=== PATIENT | male | born 1990 | race Two or more races ===

== ENCOUNTER 2017-06-04 03:19 | Emergency (ER) | payer SELFPAY ==
[2017-06-04 03:32] VITALS: BP 179/111
[2017-06-04] MEDS ORDERED: Albuterol/Ipratropium 3.0-0.5 MG/3 ML Neb Soln ONE (03:32)
--- NOTE | 2017-06-04 05:11 | EDM.PDOC ---
<Jasbir Blanco - Last Filed: 06/04/17 07:31> ED HPI GENERAL MEDICAL PROBLEM - General Chief Complaint: Respiratory Problem Stated Complaint: SOB Time Seen by Provider: 06/04/17 03:26 Source of Information: Reports: Patient, RN Notes Reviewed History Limitations: Reports: No Limitations - History of Present Illness INITIAL COMMENTS - FREE TEXT/NARRATIVE: The patient states that he developed a cough productive of clear, sometimes yellowish sputum along with a subjective fever this past Wednesday or Wednesday, 05/31 or 06/01/2017. He started taking an [id number] cough/cold remedy on 06/01/2017. On 06/02/2017, he developed shortness of breath and wheezing, consistent with his known asthma. He has been using his albuterol MDI 1 puff every 30 minutes, but it has not been helping. He started taking his 's amoxicillin (500 mg?) last night at 18:00, then a second dose at 02:00 this morning. The patient has never been evaluated by a [employer], and has never undergone pulmonary function tests. The albuterol MDI that he uses was given to him by his mother. The patient does not have a PCP. Chest Pain Score (Numeric/FACES): 3 - Related Data Allergies Allergy/AdvReac Type Severity Reaction Status Date / Time No Known Allergies Allergy Verified 06/04/17 03:32 Home Meds: Home Meds Albuterol [Proventil HFA] 2 inhalation INH Q2H PRN #1 inhaler 06/04/17 [Rx] Prednisone [IJD: predniSONE] 80 mg PO WITHBREAKFAST #16 tab 06/04/17 [Rx] Past Medical History Respiratory History: Reports: Asthma (presumed, never tested for) Endocrine/Metabolic History: Reports: Obesity/BMI 30+ - Past Surgical History Male Surgical History: Reports: Circumcision Social & Family History - Tobacco Use Smoking Status *Q: Former Smoker Years of Tobacco use: 3 Packs/Tins Daily: 0.1 Month Tobacco Last Used: Quit 05/2012 - Alcohol Use Alcohol Use History: Yes Alcohol Use Frequency: Socially - Recreational Drug Use Recreational Drug Use: No - Living Situation & Occupation Living situation: Reports: , with Spouse, with Family (2 kids) Occupation: Employed ([employer]) ED ROS GENERAL - Review of Systems Review Of Systems: See Below Constitutional: Reports: No Symptoms HEENT: Reports: No Symptoms Respiratory: Reports: No Symptoms Cardiovascular: Reports: No Symptoms Endocrine: Reports: No Symptoms GI/Abdominal: Reports: No Symptoms : Reports: No Symptoms Musculoskeletal: Reports: No Symptoms Skin: Reports: No Symptoms Neurological: Reports: No Symptoms Psychiatric: Reports: No Symptoms Hematologic/Lymphatic: Reports: No Symptoms Immunologic: Reports: No Symptoms ED EXAM, GENERAL - Physical Exam Exam: See Below Exam Limited By: No Limitations General Appearance: Alert, WD/WN, Mild Distress (Appears dyspneic) Eye Exam: Bilateral Eye: Normal Inspection Ears: Normal External Exam, Hearing Grossly Normal Nose: Normal Inspection, No Blood Throat/Mouth: Normal Inspection, Normal Lips, Normal Voice, No Airway Compromise Head: Atraumatic, Normocephalic Neck: Normal Inspection, Full Range of Motion Respiratory/Chest: No Accessory Muscle Use, Decreased Breath Sounds, Wheezing ( throughout lung peralta), Prolonged Expiration. No: Crackles, Rhonchi Cardiovascular: Normal Peripheral Pulses, Regular Rate, Rhythm, No Gallop, No JVD, No Murmur, No Rub, Tachycardia Peripheral Pulses: 4+: Radial (L), Radial (R) GI/Abdominal: Normal Bowel Sounds, Soft, Non-Tender, No Organomegaly, No Distention, No Abnormal Bruit, No Mass, Other (Obese) (Male) Exam: Deferred Rectal (Males) Exam: Deferred Back Exam: Normal Inspection, Full Range of Motion, NT Extremities: Normal Inspection, Normal Range of Motion, No Pedal Edema, Normal Capillary Refill Neurological: Alert, Oriented, Normal Cognition, No Motor/Sensory Deficits Psychiatric: Normal Affect Skin Exam: Warm, Dry, Intact, Normal Color, No Rash Course - Vital Signs Last Recorded V/S: Last Vital Signs Temp 36.0 C 06/04/17 03:25 Pulse 89 06/04/17 11:00 Resp 18 06/04/17 11:00 BP 179/111 H 06/04/17 03:25 Pulse Ox 94 L 06/04/17 11:00 - Orders/Labs/Meds Orders: Active Orders 24 hr Category Date Time Status RT Aerosol Therapy [RC] ASDIRECTED Care 06/04/17 05:13 Active RT Aerosol Therapy [RC] ASDIRECTED Care 06/04/17 06:10 Active RT Aerosol Therapy [RC] ASDIRECTED Care 06/04/17 06:51 Active RT Post Treatment Assessment [RC] Click to Edit Care 06/04/17 07:34 Active RT Pre-Treatment Assessment [RC] Click to Edit Care 06/04/17 07:34 Active Albuterol [Proventil HFA] Med 06/04/17 07:33 Active See Dose Instructions INH Q2H PRN Medication Orders Albuterol (Proventil Hfa) 0 gm INH Q2H PRN PRN Reason: Wheezing Last Admin: 06/04/17 07:48 Dose: 2 puff Labs: Laboratory Tests 06/04/17 06/04/17 Range/Units 03:51 03:51 WBC 14.36 H (4.23-9.07) K/mm3 RBC 5.72 (4.63-6.08) M/mm3 Hgb 16.2 (13.7-17.5) gm/L Hct 45.9 (40.1-51.0) % MCV 80.2 (79.0-92.2) fl MCH 28.3 (25.7-32.2) pg MCHC 35.3 (32.2-35.5) g/dl RDW Std Deviation 38.8 (35.1-43.9) fL Plt Count 253 (163-337) K/mm3 MPV 10.1 (9.4-12.3) fl Neutrophils % (Manual) 79 H (40-60) % Band Neutrophils % 1 (0-10) % Lymphocytes % (Manual) 13 L (20-40) % Atypical Lymphs % 0 % Monocytes % (Manual) 3 (2-10) % Eosinophils % (Manual) 3 (0.8-7.0) % Basophils % (Manual) 1 (0.2-1.2) Platelet Estimate Adequate RBC Morph Comment Normal Sodium 138 (136-145) mEq/L Potassium 3.3 L (3.5-5.1) mEq/L Chloride 102 (98-107) mEq/L Carbon Dioxide 22 (21-32) mEq/L Anion Gap 17.3 H (5-15) BUN 9 (7-18) mg/dL Creatinine 1.1 (0.7-1.3) mg/dL Est Cr Clr Drug Dosing 108.39 mL/min Estimated GFR (MDRD) > 60 (>60) mL/min BUN/Creatinine Ratio 8.2 L (14-18) Glucose 165 H (74-106) mg/dL Calcium 9.0 (8.5-10.1) mg/dL Total Bilirubin 2.0 H (0.2-1.0) mg/dL AST 25 (15-37) U/L ALT 48 (16-63) U/L Alkaline Phosphatase 72 (46-116) U/L Total Protein 8.4 H (6.4-8.2) g/dl Albumin 4.3 (3.4-5.0) g/dl Globulin 4.1 gm/dL Albumin/Globulin Ratio 1.1 (1-2) Meds: Medications Generic Name Dose Route Start Last Admin Trade Name Freq PRN Reason Stop Dose Admin Albuterol 0 gm 06/04/17 07:33 06/04/17 07:48 Proventil Hfa INH 2 puff Q2H PRN Administration Wheezing Discontinued Medications Generic Name Dose Route Start Last Admin Trade Name Freq PRN Reason Stop Dose Admin Albuterol 2.5 mg 06/04/17 05:13 06/04/17 05:27 Proventil Neb Soln NEB 06/04/17 05:14 2.5 mg ONETIME ONE Administration Albuterol Confirm 06/04/17 05:30 06/04/17 06:14 Proventil Neb Soln Administered 06/04/17 05:31 2.5 mg Dose Administration 2.5 mg .ROUTE .STK-MED ONE Albuterol 2.5 mg 06/04/17 06:10 06/04/17 06:14 Proventil Neb Soln NEB 06/04/17 06:11 Not Given ONETIME ONE Albuterol/Ipratropium Confirm 06/04/17 03:32 06/04/17 03:34 Duoneb 3.0-0.5 Mg/3 Ml Administered 06/04/17 03:33 3 ml Dose Administration 3 ml .ROUTE .STK-MED ONE Albuterol/Ipratropium 3 ml 06/04/17 06:51 06/04/17 06:57 Duoneb 3.0-0.5 Mg/3 Ml NEB 06/04/17 06:52 3 ml ONETIME ONE Administration Prednisone 80 mg 06/04/17 05:12 06/04/17 05:21 Prednisone PO 06/04/17 05:13 80 mg ONETIME STA Administration - Re-Assessments/Exams Free Text/Narrative Re-Assessment/Exam: 06/04/17 05:11 Two-view chest radiograph appears to be grossly normal. Cardiac silhouette is within normal limits. No pulmonary vascular congestion. No pleural effusions. No focal infiltrate. No pneumothorax. Formal read per the Radiologist pending. 06/04/17 06:51 The patient has thus far received a DuoNeb, 2 albuterol nebs, and 80 mg oral prednisone. He continues to have expiratory wheezes across all lung peralta, with somewhat prolonged exhalations. I have ordered a second DuoNeb. The patient may require placement into observation for continued treatment. 06/04/17 07:[address] Selma Blackwell, and care of the patient turned over to her at this time for change of shift. Departure - Departure Disposition: Home, Self-Care 01 Clinical Impression: Asthma exacerbation - Discharge Information Prescriptions: Albuterol [Proventil HFA] 2 inhalation INH Q2H PRN #1 inhaler PRN Reason: Shortness Of Breath Prednisone [IJD: predniSONE] 80 mg PO WITHBREAKFAST #16 tab Instructions: Asthma, Adult, [id number] Referrals: PCP,None [Primary Care Provider] - Forms: ED Department Discharge Additional Instructions: 1. Use albuterol as prescribed for wheezing or shortness of breath 2. Take prednisone as prescribed. Next dose should be tomorrow morning 3. Follow up with a primary doctor as soon as possible. Call [phone] if you' d like to schedule here. 4. Return to the ED at any time if you have worsening shortness of breath or any other concerning symptoms. - My Orders Last 24 Hours: My Active Orders 06/04/17 07:33 Albuterol [Proventil HFA] See Dose Instructions INH Q2H PRN 06/04/17 07:34 RT Post Treatment Assessment [RC] Click to Edit RT Pre-Treatment Assessment [RC] Click to Edit - Assessment/Plan Last 24 Hours: My Active Orders 06/04/17 07:33 Albuterol [Proventil HFA] See Dose Instructions INH Q2H PRN 06/04/17 07:34 RT Post Treatment Assessment [RC] Click to Edit RT Pre-Treatment Assessment [RC] Click to Edit <Shai Archibald - Last Filed: 06/04/17 11:25> Course - Re-Assessments/Exams Free Text/Narrative Re-Assessment/Exam: 06/04/17 07:56 Patient signed out to me pending reevaluation and observation. At this time, patient is breathing comfortably on room air and speaking in full sentences. He has no respiratory distress. States that he feels a lot better and has much less tightness in his chest. He does still have diffuse expiratory wheezes. He received oral prednisone a couple of hours ago. We will continue albuterol and continued to observe him this morning as the prednisone is beginning to take effect to ensure that he continues to improve. Ordered albuterol MDI inhaler with spacer and requested RT to assist patient with some teaching to ensure proper technique. 06/04/17 11:25 Feeling much better. SpO2 94-97 on RA. Still mildly wheezing but improved. Wants to go home. Discussed strict return precautions and need for PCP f/u. Patient understood. Departure - Departure Time of Disposition: 10:57
[2017-06-04] MEDS ORDERED: predniSONE 20 MG Tab PO STA (05:12)
[2017-06-04] MEDS ORDERED: Albuterol 0.083% 2.5 MG/3 ML Neb Soln NEB ONE ×2 (05:13→06:10)
[2017-06-04] MEDS ORDERED: Albuterol 0.083% 2.5 MG/3 ML Neb Soln ONE (05:30)
[2017-06-04] MEDS ORDERED: Albuterol/Ipratropium 3.0-0.5 MG/3 ML Neb Soln NEB ONE (06:51)
--- NOTE | 2017-06-04 07:02 | CR ---
Chest: Two views of the chest were obtained. Comparison: No previous chest x-ray. Heart size and mediastinum are normal. Lungs are clear. Bony structures are unremarkable. Impression: 1. Nothing acute is seen on two-view chest x-ray. Diagnostic code #1
[2017-06-04] MEDS ORDERED: Albuterol 6.7 GM Inhaler INH PRN (07:33)
== END 2017-06-04 11:15 | disposition home or self-care (01) ==
LOC: JD.ED 03:19
DX: J45.901 Unspecified asthma with (acute) exacerbation (principal); Z87.891 Personal history of nicotine dependence
CPT/HCPCS: 36415; 71020; 80053; 85025; 87804; 94640; 94664; 99285; A9270; 99284

== ENCOUNTER 2018-03-29 23:06 | Observation (INO) | payer MEDICAID ==
[2018-03-29] MEDS ORDERED: Alum Hydrox/Mag Hydrox/Simeth 30 ML, Lidocaine 2% 15 ML PO ONE ×2 (23:40)
[2018-03-30] MEDS ORDERED: Famotidine 20 MG/2 ML SDV IVPUSH ONE (00:11)
[2018-03-30] MEDS: Sodium Chloride 0.9% 1,000 ML IV SCH ×5 (00:21→23:28)
[2018-03-30] MEDS ORDERED: Diatrizoate Meglumine/Diatrizoate Sodium 37% 120 ML Bottle PO ONE (01:29)
[2018-03-30] MEDS ORDERED: Iopamidol 612 MG/ML 150 ML Bottle IVPUSH ONE (01:29)
[2018-03-30] MEDS ORDERED: Albuterol 0.083% 2.5 MG/3 ML Neb Soln NEB ONE (02:00)
--- NOTE | 2018-03-30 02:49 | EDM.PDOC ---
ED HPI GENERAL MEDICAL PROBLEM - General Chief Complaint: Abdominal Pain Stated Complaint: ABDOMINAL PAIN Time Seen by Provider: 03/29/18 23:37 Source of Information: Reports: Patient History Limitations: Reports: No Limitations - History of Present Illness INITIAL COMMENTS - FREE TEXT/NARRATIVE: Patient is 28-year-old male presents emergency department complaining of bloody stool. Approximately 11:00 yesterday patient began having abdominal pain That he thought would pass. He took some Tums and other things [id number] felt a little better but went to the bathroom and had a bloody bowel movement and was concerned so he came to the emergency department. Patient continues to have abdominal discomfort. He describes it as a aching kind of feeling. He denies any black stools, no vomiting, no chest pain or shortness of breath no new rashes itches or joint pains at this time. Onset: Sudden Duration: Day(s): Location: Reports: Abdomen Quality: Reports: Ache Severity: Moderate Improves with: Reports: Medication (OTC antacids) Worsens with: Reports: None Context: Reports: Other (See history of present illness) Associated Symptoms: Reports: Nausea/Vomiting (Nausea no vomiting). Denies: Chest Pain, cough w sputum, Fever/Chills, Shortness of Breath Epigastric Pain Score (Numeric/FACES): 6 - Related Data Allergies Allergy/AdvReac Type Severity Reaction Status Date / Time No Known Allergies Allergy Verified 03/29/18 23:23 Home Meds: Home Meds Albuterol [Proventil HFA] 2 inhalation INH Q2H PRN #1 inhaler 06/04/17 [Rx] Fluticasone Propionate [Flovent HFA 110 MCG] 2 puff INH BID 03/30/18 [History] Past Medical History - Past Health History Medical/Surgical History: Denies Medical/Surgical History Respiratory History: Reports: Asthma Endocrine/Metabolic History: Reports: Obesity/BMI 30+ - Past Surgical History Male Surgical History: Reports: Circumcision Social & Family History - Tobacco Use Smoking Status *Q: Former Smoker Used Tobacco, but Quit: Yes Month/Year Tobacco Last Used: 2 - Caffeine Use Caffeine Use: Reports: None - Recreational Drug Use Recreational Drug Use: No - Living Situation & Occupation Living situation: Reports: , with Spouse, with Family (2 kids) Occupation: Employed ([employer]) ED ROS GENERAL - Review of Systems Review Of Systems: See Below Constitutional: Reports: No Symptoms HEENT: Reports: No Symptoms Respiratory: Reports: No Symptoms Cardiovascular: Reports: No Symptoms Endocrine: Reports: No Symptoms GI/Abdominal: Reports: Abdominal Pain, Bloody Stool, Hematochezia, Nausea. Denies: Black Stool, Constipation, Melena, Vomiting : Reports: No Symptoms Musculoskeletal: Reports: No Symptoms Skin: Reports: No Symptoms Neurological: Reports: No Symptoms Psychiatric: Reports: No Symptoms Hematologic/Lymphatic: Reports: No Symptoms Immunologic: Reports: No Symptoms ED EXAM, GI/ABD - Physical Exam Exam: See Below Exam Limited By: No Limitations General Appearance: Alert, WD/WN, Mild Distress Eyes: Bilateral: Normal Appearance, EOMI Ears: Normal External Exam, Normal Canal, Hearing Grossly Normal Nose: Normal Inspection, Normal Mucosa, No Blood Throat/Mouth: Normal Inspection, Normal Lips, Normal Oropharynx, Normal Voice, No Airway Compromise Head: Atraumatic, Normocephalic Neck: Normal Inspection, Supple, Non-Tender, Full Range of Motion Respiratory/Chest: No Respiratory Distress, Lungs Clear, Normal Breath Sounds, No Accessory Muscle Use, Chest Non-Tender Cardiovascular: Normal Peripheral Pulses, Regular Rate, Rhythm, No Edema, No Murmur GI/Abdominal Exam: Normal Bowel Sounds, Soft, No Mass, Tender (Male) Exam: No Hernia, Normal Inspection, Normal Prostate, Circumcised Rectal (Males) Exam: Normal Exam, Normal Rectal Tone, Prostate Normal Back Exam: Normal Inspection, Full Range of Motion, NT Extremities: Normal Inspection, Normal Range of Motion, Non-Tender, Normal Capillary Refill, No Pedal Edema Neurological: Alert, Oriented, CN II-XII Intact, Normal Cognition, Normal Gait, Normal Reflexes, No Motor/Sensory Deficits Psychiatric: Normal Affect, Normal Mood Skin Exam: Warm, Dry, Intact, Normal Color, No Rash Lymphatic: No Adenopathy Course - Vital Signs Last Recorded V/S: Last Vital Signs Temp 98.2 F 03/31/18 18:15 Pulse 79 03/31/18 18:15 Resp 16 03/31/18 18:15 BP 133/84 03/31/18 18:15 Pulse Ox 99 03/31/18 18:15 - Orders/Labs/Meds Orders: Medication Orders Acetaminophen (Tylenol) 650 mg PO Q4H PRN PRN Reason: Pain (Mild 1-3)/fever Hydrocodone Bitart/Acetaminophen ([place] 325-5 Mg) 1 tab PO Q4H PRN PRN Reason: Pain (moderate 4-6) Albuterol (Proventil Hfa) 0 gm INH Q2H PRN PRN Reason: wheezing or SOB Last Admin: 03/31/18 09:10 Dose: 2 puff Admin: 03/31/18 05:12 Dose: 2 puff Albuterol/Ipratropium (Duoneb 3.0-0.5 Mg/3 Ml) 3 ml NEB Q4H PRN PRN Reason: Shortness Of Breath/wheezing Last Admin: 03/30/18 13:17 Dose: 3 ml Dicyclomine HCl (Bentyl) 10 mg PO QIDACANDBED PRN PRN Reason: Abdominal Pain Last Admin: 03/30/18 06:15 Dose: 10 mg Famotidine (Pepcid) 20 mg PO BID [facility] Last Admin: 03/31/18 08:05 Dose: 20 mg Fluticasone Propionate (Flovent Hfa 110 Mcg) 0 gm INH BID [facility] Last Admin: 03/31/18 09:08 Dose: 2 puff Admin: 03/30/18 20:44 Dose: 2 puff Admin: 03/30/18 14:00 Dose: 2 puff Hydralazine HCl (Apresoline) 20 mg IVPUSH Q4H PRN PRN Reason: Hypertension Hydromorphone HCl (Dilaudid) 0.5 mg IVPUSH Q2H PRN PRN Reason: Pain (severe 7-10) Sodium Chloride (Normal Saline) 1,000 mls @ 150 mls/hr IV ASDIRECTED [facility] Last Admin: 03/31/18 14:26 Dose: 150 mls/hr Infusion: 03/31/18 14:26 Dose: 150 mls/hr Admin: 03/31/18 08:08 Dose: 150 mls/hr Infusion: 03/31/18 06:09 Dose: 150 mls/hr Admin: 03/30/18 23:28 Dose: 150 mls/hr Infusion: 03/30/18 23:10 Dose: 150 mls/hr Admin: 03/30/18 16:29 Dose: 150 mls/hr Infusion: 03/30/18 16:29 Dose: 150 mls/hr Admin: 03/30/18 10:46 Dose: 150 mls/hr Infusion: 03/30/18 10:46 Dose: 150 mls/hr Admin: 03/30/18 04:05 Dose: 150 mls/hr Infusion: 03/30/18 04:05 Dose: 150 mls/hr Admin: 03/30/18 00:21 Dose: 150 mls/hr Promethazine HCl 12.5 mg/ (Sodium Chloride) 50.5 mls @ 100 mls/hr IV Q6H PRN PRN Reason: Nausea/Vomiting Levofloxacin/Dextrose 500 mg/ (Premix) 100 mls @ 100 mls/hr IV Q24H [facility] Last Admin: 03/31/18 06:02 Dose: 100 mls/hr Infusion: 03/30/18 07:55 Dose: 100 mls/hr Admin: 03/30/18 06:55 Dose: 100 mls/hr Metronidazole 500 mg/ Premix 100 mls @ 100 mls/hr IV Q8H [facility] Last Admin: 03/31/18 13:25 Dose: 100 mls/hr Infusion: 03/31/18 06:02 Dose: 100 mls/hr Admin: 03/31/18 05:02 Dose: 100 mls/hr Infusion: 03/30/18 21:53 Dose: 100 mls/hr Admin: 03/30/18 20:53 Dose: 100 mls/hr Infusion: 03/30/18 14:10 Dose: 100 mls/hr Admin: 03/30/18 13:10 Dose: 100 mls/hr Infusion: 03/30/18 06:36 Dose: 100 mls/hr Admin: 03/30/18 05:36 Dose: 100 mls/hr Lorazepam (Ativan) 2 mg IVPUSH Q4H PRN PRN Reason: Seizures Lorazepam (Ativan) 1 mg IV Q6H PRN PRN Reason: Anxiety Mesalamine (Asacol Hd) 800 mg PO TID@0700,1400,2100 [facility] Last Admin: 03/31/18 14:25 Dose: 800 mg Admin: 03/31/18 06:22 Dose: 800 mg Admin: 03/30/18 20:54 Dose: 800 mg Admin: 03/30/18 13:10 Dose: 800 mg Admin: 03/30/18 06:15 Dose: 800 mg Metoprolol Tartrate (Lopressor) 5 mg IVPUSH Q4H PRN PRN Reason: Tachycardia Ondansetron HCl (Zofran) 4 mg IV Q6H PRN PRN Reason: Nausea/Vomiting Last Admin: 03/30/18 12:39 Dose: 4 mg Saccharomyces Boulardii (Florastor) 250 mg PO BID [facility]ATH[facility] Last Admin: 03/31/18 09:41 Dose: Temazepam (Restoril) 15 mg PO BEDTIME PRN PRN Reason: Sleep Labs: Laboratory Tests 03/29/18 03/29/18 03/29/18 Range/Units 23:34 23:34 23:34 WBC 9.85 H (4.23-9.07) K/mm3 RBC 5.14 (4.63-6.08) M/mm3 Hgb 14.5 (13.7-17.5) gm/L Hct 42.0 (40.1-51.0) % MCV 81.7 (79.0-92.2) fl MCH 28.2 (25.7-32.2) pg MCHC 34.5 (32.2-35.5) g/dl RDW Std Deviation 38.7 (35.1-43.9) fL Plt Count 227 (163-337) K/mm3 MPV 10.2 (9.4-12.3) fl Neut % (Auto) 58.5 (34.0-67.9) % Lymph % (Auto) 27.2 (21.8-53.1) % Josephine % (Auto) 9.2 (5.3-12.2) % Eos % (Auto) 4.6 (0.8-7.0) Baso % (Auto) 0.3 (0.1-1.2) % Neut # (Auto) 5.76 H (1.78-5.38) K/mm3 Lymph # (Auto) 2.68 (1.32-3.57) K/mm3 Josephine # (Auto) 0.91 H (0.30-0.82) K/mm3 Eos # (Auto) 0.45 (0.04-0.54) K/mm3 Baso # (Auto) 0.03 (0.01-0.08) K/mm3 ESR (0-15) mm/hr Sodium 140 (136-145) mEq/L Potassium 3.4 L (3.5-5.1) mEq/L Chloride 106 (98-107) mEq/L Carbon Dioxide 25 (21-32) mEq/L Anion Gap 12.4 (5-15) BUN 12 (7-18) mg/dL Creatinine 1.0 (0.7-1.3) mg/dL Est Cr Clr Drug Dosing 118.18 mL/min Estimated GFR (MDRD) > 60 (>60) mL/min BUN/Creatinine Ratio 12.0 L (14-18) Glucose 106 (74-106) mg/dL Lactic Acid (0.4-2.0) mmol/L Calcium 8.3 L (8.5-10.1) mg/dL Total Bilirubin 0.8 (0.2-1.0) mg/dL AST 23 (15-37) U/L ALT 57 (16-63) U/L Alkaline Phosphatase 63 (46-116) U/L C-Reactive Protein (<1.0) mg/dL Total Protein 7.1 (6.4-8.2) g/dl Albumin 3.7 (3.4-5.0) g/dl Globulin 3.4 gm/dL Albumin/Globulin Ratio 1.1 (1-2) Lipase 121 (73-393) U/L Urine Color (Yellow) Urine Appearance (Clear) Urine pH (5.0-8.0) Ur Specific [place] (1.005-1.030) Urine Protein (Negative) Urine Glucose (UA) (Negative) Urine Ketones (Negative) Urine Occult Blood (Negative) Urine Nitrite (Negative) Urine Bilirubin (Negative) Urine Urobilinogen (0.2-1.0) Ur Leukocyte Esterase (Negative) Urine RBC (0-5) /hpf Urine WBC (0-5) /hpf Ur Epithelial Cells (0-5) /hpf Urine Bacteria (FEW) /hpf Urine Mucus (FEW) /hpf Urine Opiates Screen (NEGATIVE) Ur Buprenorphine Scrn (NEGATIVE) Ur Oxycodone Screen (NEGATIVE) Urine Methadone Screen (NEGATIVE) Ur Propoxyphene Screen (NEGATIVE) Ur Barbiturates Screen (NEGATIVE) Ur Tricyclics Screen (NEGATIVE) Ur Phencyclidine Scrn (NEGATIVE) Ur Amphetamine Screen (NEGATIVE) U Methamphetamines Scrn (NEGATIVE) U Benzodiazepines Scrn (NEGATIVE) U Cocaine Metab Screen (NEGATIVE) U Marijuana (THC) Screen (NEGATIVE) 03/29/18 03/29/18 03/30/18 Range/Units 23:34 23:34 00:19 WBC (4.23-9.07) K/mm3 RBC (4.63-6.08) M/mm3 Hgb (13.7-17.5) gm/L Hct (40.1-51.0) % MCV (79.0-92.2) fl MCH (25.7-32.2) pg MCHC (32.2-35.5) g/dl RDW Std Deviation (35.1-43.9) fL Plt Count (163-337) K/mm3 MPV (9.4-12.3) fl Neut % (Auto) (34.0-67.9) % Lymph % (Auto) (21.8-53.1) % Josephine % (Auto) (5.3-12.2) % Eos % (Auto) (0.8-7.0) Baso % (Auto) (0.1-1.2) % Neut # (Auto) (1.78-5.38) K/mm3 Lymph # (Auto) (1.32-3.57) K/mm3 Josephine # (Auto) (0.30-0.82) K/mm3 Eos # (Auto) (0.04-0.54) K/mm3 Baso # (Auto) (0.01-0.08) K/mm3 ESR 12 (0-15) mm/hr Sodium (136-145) mEq/L Potassium (3.5-5.1) mEq/L Chloride (98-107) mEq/L Carbon Dioxide (21-32) mEq/L Anion Gap (5-15) BUN (7-18) mg/dL Creatinine (0.7-1.3) mg/dL Est Cr Clr Drug Dosing mL/min Estimated GFR (MDRD) (>60) mL/min BUN/Creatinine Ratio (14-18) Glucose (74-106) mg/dL Lactic Acid (0.4-2.0) mmol/L Calcium (8.5-10.1) mg/dL Total Bilirubin (0.2-1.0) mg/dL AST (15-37) U/L ALT (16-63) U/L Alkaline Phosphatase (46-116) U/L C-Reactive Protein 1.6 H* (<1.0) mg/dL Total Protein (6.4-8.2) g/dl Albumin (3.4-5.0) g/dl Globulin gm/dL Albumin/Globulin Ratio (1-2) Lipase (73-393) U/L Urine Color Yellow (Yellow) Urine Appearance Clear (Clear) Urine pH 6.0 (5.0-8.0) Ur Specific [place] 1.025 (1.005-1.030) Urine Protein Trace H (Negative) Urine Glucose (UA) Negative (Negative) Urine Ketones Negative (Negative) Urine Occult Blood Negative (Negative) Urine Nitrite Negative (Negative) Urine Bilirubin Negative (Negative) Urine Urobilinogen 0.2 (0.2-1.0) Ur Leukocyte Esterase Negative (Negative) Urine RBC 0-5 (0-5) /hpf Urine WBC 0-5 (0-5) /hpf Ur Epithelial Cells 0-5 (0-5) /hpf Urine Bacteria Not seen (FEW) /hpf Urine Mucus Moderate H (FEW) /hpf Urine Opiates Screen (NEGATIVE) Ur Buprenorphine Scrn (NEGATIVE) Ur Oxycodone Screen (NEGATIVE) Urine Methadone Screen (NEGATIVE) Ur Propoxyphene Screen (NEGATIVE) Ur Barbiturates Screen (NEGATIVE) Ur Tricyclics Screen (NEGATIVE) Ur Phencyclidine Scrn (NEGATIVE) Ur Amphetamine Screen (NEGATIVE) U Methamphetamines Scrn (NEGATIVE) U Benzodiazepines Scrn (NEGATIVE) U Cocaine Metab Screen (NEGATIVE) U Marijuana (THC) Screen (NEGATIVE) 03/30/18 03/30/18 Range/Units 00:19 00:25 WBC (4.23-9.07) K/mm3 RBC (4.63-6.08) M/mm3 Hgb (13.7-17.5) gm/L Hct (40.1-51.0) % MCV (79.0-92.2) fl MCH (25.7-32.2) pg MCHC (32.2-35.5) g/dl RDW Std Deviation (35.1-43.9) fL Plt Count (163-337) K/mm3 MPV (9.4-12.3) fl Neut % (Auto) (34.0-67.9) % Lymph % (Auto) (21.8-53.1) % Josephine % (Auto) (5.3-12.2) % Eos % (Auto) (0.8-7.0) Baso % (Auto) (0.1-1.2) % Neut # (Auto) (1.78-5.38) K/mm3 Lymph # (Auto) (1.32-3.57) K/mm3 Josephine # (Auto) (0.30-0.82) K/mm3 Eos # (Auto) (0.04-0.54) K/mm3 Baso # (Auto) (0.01-0.08) K/mm3 ESR (0-15) mm/hr Sodium (136-145) mEq/L Potassium (3.5-5.1) mEq/L Chloride (98-107) mEq/L Carbon Dioxide (21-32) mEq/L Anion Gap (5-15) BUN (7-18) mg/dL Creatinine (0.7-1.3) mg/dL Est Cr Clr Drug Dosing mL/min Estimated GFR (MDRD) (>60) mL/min BUN/Creatinine Ratio (14-18) Glucose (74-106) mg/dL Lactic Acid 0.9 (0.4-2.0) mmol/L Calcium (8.5-10.1) mg/dL Total Bilirubin (0.2-1.0) mg/dL AST (15-37) U/L ALT (16-63) U/L Alkaline Phosphatase (46-116) U/L C-Reactive Protein (<1.0) mg/dL Total Protein (6.4-8.2) g/dl Albumin (3.4-5.0) g/dl Globulin gm/dL Albumin/Globulin Ratio (1-2) Lipase (73-393) U/L Urine Color (Yellow) Urine Appearance (Clear) Urine pH (5.0-8.0) Ur Specific [place] (1.005-1.030) Urine Protein (Negative) Urine Glucose (UA) (Negative) Urine Ketones (Negative) Urine Occult Blood (Negative) Urine Nitrite (Negative) Urine Bilirubin (Negative) Urine Urobilinogen (0.2-1.0) Ur Leukocyte Esterase (Negative) Urine RBC (0-5) /hpf Urine WBC (0-5) /hpf Ur Epithelial Cells (0-5) /hpf Urine Bacteria (FEW) /hpf Urine Mucus (FEW) /hpf Urine Opiates Screen Negative (NEGATIVE) Ur Buprenorphine Scrn Negative (NEGATIVE) Ur Oxycodone Screen Negative (NEGATIVE) Urine Methadone Screen Negative (NEGATIVE) Ur Propoxyphene Screen Negative (NEGATIVE) Ur Barbiturates Screen Negative (NEGATIVE) Ur Tricyclics Screen Negative (NEGATIVE) Ur Phencyclidine Scrn Negative (NEGATIVE) Ur Amphetamine Screen Negative (NEGATIVE) U Methamphetamines Scrn Negative (NEGATIVE) U Benzodiazepines Scrn Negative (NEGATIVE) U Cocaine Metab Screen Negative (NEGATIVE) U Marijuana (THC) Screen Presumptive positive H (NEGATIVE) Meds: Medications Generic Name Dose Route Start Last Admin Trade Name Freq PRN Reason Stop Dose Admin Acetaminophen 650 mg 03/30/18 03:11 Tylenol PO Q4H PRN Pain (Mild 1-3)/fever Hydrocodone Bitart/Acetaminophen 1 tab 03/30/18 03:11 [place] 325-5 Mg PO Q4H PRN Pain (moderate 4-6) Albuterol 0 gm 03/30/18 13:51 03/31/18 09:10 Proventil Hfa INH 2 puff Q2H PRN Administration wheezing or SOB Albuterol/Ipratropium 3 ml 03/30/18 03:11 03/30/18 13:17 Duoneb 3.0-0.5 Mg/3 Ml NEB 3 ml Q4H PRN Administration Shortness Of Breath/wheezing Dicyclomine HCl 10 mg 03/30/18 05:55 03/30/18 06:15 Bentyl PO 10 mg QIDACANDBED PRN Administration Abdominal Pain Famotidine 20 mg 03/31/18 09:00 03/31/18 08:05 Pepcid PO 20 mg BID KATHY Administration Fluticasone Propionate 0 gm 03/30/18 14:00 03/31/18 09:08 Flovent Hfa 110 Mcg INH 2 puff BID KATHY Administration Hydralazine HCl 20 mg 03/30/18 03:11 Apresoline IVPUSH Q4H PRN Hypertension Hydromorphone HCl 0.5 mg 03/30/18 03:11 Dilaudid IVPUSH Q2H PRN Pain (severe 7-10) Sodium Chloride 1,000 mls @ 150 mls/hr 03/30/18 00:15 03/31/18 14:26 Normal Saline IV 150 mls/hr ASDIRECTED KATHY Administration Promethazine HCl 12.5 mg/ 50.5 mls @ 100 mls/hr 03/30/18 03:11 Sodium Chloride IV Q6H PRN Nausea/Vomiting Levofloxacin/Dextrose 500 mg/ 100 mls @ 100 mls/hr 03/30/18 05:00 03/31/18 06 :02 Premix IV 100 mls/hr Q24H [facility] Administration Metronidazole 500 mg/ Premix 100 mls @ 100 mls/hr 03/30/18 05:00 03/31/18 13: 25 IV 100 mls/hr Q8H [facility] Administration Lorazepam 2 mg 03/30/18 03:11 Ativan IVPUSH Q4H PRN Seizures Lorazepam 1 mg 03/30/18 03:11 Ativan IV Q6H PRN Anxiety Mesalamine 800 mg 03/30/18 07:00 03/31/18 14:25 Asacol Hd PO 800 mg TID@0700,1400,2100 [facility] Administration Metoprolol Tartrate 5 mg 03/30/18 03:11 Lopressor IVPUSH Q4H PRN Tachycardia Ondansetron HCl 4 mg 03/30/18 03:11 03/30/18 12:39 Zofran IV 4 mg Q6H PRN Administration Nausea/Vomiting Saccharomyces Boulardii 250 mg 03/31/18 09:00 03/31/18 09:41 Florastor PO Not Given BID KATHY Temazepam 15 mg 03/30/18 03:11 Restoril PO BEDTIME PRN Sleep Discontinued Medications Generic Name Dose Route Start Last Admin Trade Name Freq PRN Reason Stop Dose Admin Albuterol 5 mg 03/30/18 02:00 03/30/18 02:05 Proventil Neb Soln NEB 03/30/18 02:01 5 mg ONETIME ONE Administration Al Hydroxide/Mg Hydroxide 30 0 ml 03/29/18 23:40 03/29/18 23:45 ml/ Lidocaine HCl 15 ml PO 03/29/18 23:41 45 ml ONETIME ONE Administration Diatrizoate Meglum/Diatrizoate Sod 90 ml 03/30/18 01:29 03/30/18 01:42 Gastrografin 37% PO 03/30/18 01:30 90 ml ONETIME ONE Administration Famotidine 20 mg 03/30/18 00:11 03/30/18 00:24 Pepcid IVPUSH 03/30/18 00:12 20 mg ONETIME ONE Administration Famotidine 20 mg 03/30/18 09:00 03/30/18 20:52 Pepcid IVPUSH 03/30/18 21:01 20 mg BID KATHY Administration Iopamidol 125 ml 03/30/18 01:29 03/30/18 01:42 Isovue-300 (61%) IVPUSH 03/30/18 01:30 125 ml ONETIME ONE Administration Magnesium Oxide 800 mg 03/30/18 08:30 03/30/18 09:21 Magnesium Oxide PO 03/30/18 08:31 800 mg ONETIME ONE Administration Magnesium Sulfate 0 dose 03/30/18 03:15 Pharmacy To Dose - Magnesium Replacement .XX ASDIRECTED PRN RX TO WATCH MAG LEVELS Pantoprazole Sodium 40 mg 03/30/18 03:11 03/30/18 04:08 Protonix Iv IVPUSH 03/30/18 03:12 40 mg ONETIME ONE Administration Potassium Chloride 0 dose 03/30/18 03:15 Pharmacy To Dose - Potassium Replacement .XX ASDIRECTED PRN RX TO WATCH K LEVELS Potassium Chloride 40 meq 03/30/18 03:30 03/30/18 06:54 Klor-Con M20 PO 03/30/18 07:31 Not Given Q4H KATHY Potassium Chloride 40 meq 03/30/18 09:00 03/30/18 09:21 Klor-Con M20 PO 03/30/18 09:01 40 meq ONETIME ONE Administration Saccharomyces Boulardii 250 mg 03/30/18 04:37 03/31/18 08:05 Florastor PO 250 mg TID KATHY Administration Departure - Departure Time of Disposition: 02:40 Disposition: Admitted As Inpatient 67 Condition: Undetermined Clinical Impression: Colitis, Hypokalemia Abdominal pain Qualifiers: Abdominal location: generalized Qualified Code(s): R10.84 - Generalized abdominal pain - Discharge Information *PRESCRIPTION DRUG MONITORING PROGRAM REVIEWED*: Not Applicable *COPY OF PRESCRIPTION DRUG MONITORING REPORT IN PATIENT ELISSA: Not Applicable
--- NOTE | 2018-03-30 03:09 | PCM.HP ---
H&P History of Present Illness - General Date of Service: 03/30/18 Admit Problem/Dx: Admission Diagnosis/Problem Admission Diagnosis/Problem Colitis Source of Information: Patient, Family, Old Records, Provider, RN Notes Reviewed History Limitations: Reports: No Limitations - History of Present Illness Initial Comments - Free Text/Narative: This is a 28 yo male with past medical hx/o controlled asthma, pyrosis , intermittent stomach cramps and obesity who comes in to the ED for evaluation and management of bright red blood per rectum associated with nausea and bloating. His symptoms started Wednesday night while he was sitting on a chair, at home watching TV, when he suddenly developed stomach ache after he got up to have supper with his at about [id number] hrs. His stomach ache persisted all night and continued until today. He found some relief with OTC Tums and Pepto-Bismol that he took the following day but came that night time after having a bowel movement, he was alarmed by the bright red blood he saw on the tissues he used clean himself up. Patient describes his stool as runny with some solid contents. He reports no skin rash or lesions. He denies any previous hx/o it in the past. He carries no recent abdominal surgery or trauma. He denies having chronic constipation or diarrhea and no history of autoimmune disease. He denies smoking cigarettes, alcohol or illicit drug use. He further denies any significant FMHx/o pertinent to gastrointestinal issues. He never had EGD or colonoscopy in the past. Patient denies having unusual diet or drink. However he reports coming back from a recent camping trip in [facility] wherein the caught fish but did not consume it. He denies eating or drinking anything over there except that he swam in the [place]. His initial work up in emergency department shows a CBC remarkable for WBC of 9.85, neutrophil count of 5.76 and monocyte count of 0.91. His chemistry is remarkable for potassium of 3.4, calcium of 8.3, and CRP of 1.6. LA is within normal limits. His UA is negative for UTI. His abdominal/pelvis CT scan with intravenous contrast report reads regions of wall thickening of the colon, most notable at mid-transverse colon. Patient is being admitted for probable infectious versus inflammatory colitis. He has no PCP. Epigastric Pain Score (Numeric/FACES): 6 - Related Data Allergies/Adverse Reactions: Allergies Allergy/AdvReac Type Severity Reaction Status Date / Time No Known Allergies Allergy Verified 03/29/18 23:23 Home Medications: Home Meds Albuterol [Proventil HFA] 2 inhalation INH Q2H PRN #1 inhaler 06/04/17 [Rx] Past Medical History - Past Health History Medical/Surgical History: Denies Medical/Surgical History Respiratory History: Reports: Asthma Endocrine/Metabolic History: Reports: Obesity/BMI 30+ - Past Surgical History Male Surgical History: Reports: Circumcision Social & Family History - Tobacco Use Smoking Status *Q: Former Smoker Used Tobacco, but Quit: Yes Month/Year Tobacco Last Used: 2 - Caffeine Use Caffeine Use: Reports: None - Recreational Drug Use Recreational Drug Use: No - Living Situation & Occupation Living situation: Reports: , with Spouse, with Family (2 kids) Occupation: Employed ([employer]) H&P Review of Systems - Review of Systems: Review Of Systems: See Below General: Reports: Chills. Denies: Fever, Weakness, Fatigue, Decreased Appetite , Weight Loss HEENT: Reports: No Symptoms Pulmonary: Denies: Shortness of Breath Cardiovascular: Denies: Chest Pain, Dyspnea on Exertion, Lightheadedness, Syncope Gastrointestinal: Reports: Abdominal Pain, Flatus, Hematochezia, Nausea, Other ( runny). Denies: Anorexia, Black Stool, Bloody Stool, Constipation, Diarrhea, Decreased Appetite, Difficulty Swallowing, Distension, Hematemesis, Melena, Mucous in Stool, Stool Incontinence, Vomiting Genitourinary: Reports: No Symptoms Musculoskeletal: Reports: No Symptoms Skin: Denies: Cyanosis, Jaundice, Mottled, Pallor, Diaphoresis, Dryness, Bruising, Pruritis, Rash, Erythema, Wound, Change in Color, Change in Hair/Nails , Lesions, Lumps, Urticaria Psychiatric: Denies: Depression, Anxiety, Agitation, Hallucinations Neurological: Denies: Confusion, Difficulty Walking, Weakness, Gait Disturbance Hematologic/Lymphatic: Reports: No Symptoms Immunologic: Reports: No Symptoms Exam - Exam Exam: See Below - Vital Signs Vital Signs: Last Vital Signs Temp 36.3 C 03/29/18 23:18 Pulse 77 03/29/18 23:18 Resp 18 03/29/18 23:18 BP 137/91 H 03/29/18 23:18 Pulse Ox 98 03/30/18 02:06 Weight: 117.934 kg - Exam General: Alert, Oriented, Cooperative, Mild Distress, Other (Obese) HEENT: Conjunctiva Clear, EACs Clear, EOMI, Hearing Intact, Mucosa Moist & [place] , Nares Patent, Normal Nasal Septum, Posterior Pharynx Clear, Pupils Equal, Pupils Reactive, TMs Clear Neck: Supple, Trachea Midline, +2 Carotid Pulse wo Bruit Lungs: Clear to Auscultation, Normal Respiratory Effort Cardiovascular: Regular Rate, Regular Rhythm GI/Abdominal Exam: Normal Bowel Sounds, Soft, Non-Tender, No Organomegaly, No Distention, No Abnormal Bruit (Male) Exam: Deferred Rectal (Males) Exam: Deferred Back Exam: Normal Inspection, Decreased Range of Motion Extremities: Normal Inspection, Normal Range of Motion, Non-Tender, No Pedal Edema, Normal Capillary Refill Peripheral Pulses: 3+: Posterior Tibial (L), Posterior Tibial (R), Dorsalis Pedis (L), Dorsalis Pedis (R) Skin: Warm, Dry, Intact Neuro Extensive - Mental Status: Oriented x3, Normal Cognition, Memory Intact Neuro Extensive - Motor, Sensory, Reflexes: CN II-XII Intact, Normal Gait Psychiatric: Alert, Normal Affect, Normal Mood - Patient Data Lab Results Last 24 hrs: Laboratory Results - last 24 hr 03/29/18 03/29/18 03/29/18 Range/Units 23:34 23:34 23:34 WBC 9.85 H (4.23-9.07) K/mm3 RBC 5.14 (4.63-6.08) M/mm3 Hgb 14.5 (13.7-17.5) gm/L Hct 42.0 (40.1-51.0) % MCV 81.7 (79.0-92.2) fl MCH 28.2 (25.7-32.2) pg MCHC 34.5 (32.2-35.5) g/dl RDW Std Deviation 38.7 (35.1-43.9) fL Plt Count 227 (163-337) K/mm3 MPV 10.2 (9.4-12.3) fl Neut % (Auto) 58.5 (34.0-67.9) % Lymph % (Auto) 27.2 (21.8-53.1) % [place] % (Auto) 9.2 (5.3-12.2) % Eos % (Auto) 4.6 (0.8-7.0) Baso % (Auto) 0.3 (0.1-1.2) % Neut # (Auto) 5.76 H (1.78-5.38) K/mm3 Lymph # (Auto) 2.68 (1.32-3.57) K/mm3 Jennings # (Auto) 0.91 H (0.30-0.82) K/mm3 Eos # (Auto) 0.45 (0.04-0.54) K/mm3 Baso # (Auto) 0.03 (0.01-0.08) K/mm3 Sodium 140 (136-145) mEq/L Potassium 3.4 L (3.5-5.1) mEq/L Chloride 106 (98-107) mEq/L Carbon Dioxide 25 (21-32) mEq/L Anion Gap 12.4 (5-15) BUN 12 (7-18) mg/dL Creatinine 1.0 (0.7-1.3) mg/dL Est Cr Clr Drug Dosing 118.18 mL/min Estimated GFR (MDRD) > 60 (>60) mL/min BUN/Creatinine Ratio 12.0 L (14-18) Glucose 106 (74-106) mg/dL Lactic Acid (0.4-2.0) mmol/L Calcium 8.3 L (8.5-10.1) mg/dL Total Bilirubin 0.8 (0.2-1.0) mg/dL AST 23 (15-37) U/L ALT 57 (16-63) U/L Alkaline Phosphatase 63 (46-116) U/L Total Protein 7.1 (6.4-8.2) g/dl Albumin 3.7 (3.4-5.0) g/dl Globulin 3.4 gm/dL Albumin/Globulin Ratio 1.1 (1-2) Lipase 121 (73-393) U/L Urine Color (Yellow) Urine Appearance (Clear) Urine pH (5.0-8.0) Ur Specific [place] (1.005-1.030) Urine Protein (Negative) Urine Glucose (UA) (Negative) Urine Ketones (Negative) Urine Occult Blood (Negative) Urine Nitrite (Negative) Urine Bilirubin (Negative) Urine Urobilinogen (0.2-1.0) Ur Leukocyte Esterase (Negative) Urine RBC (0-5) /hpf Urine WBC (0-5) /hpf Ur Epithelial Cells (0-5) /hpf Urine Bacteria (FEW) /hpf Urine Mucus (FEW) /hpf 03/30/18 03/30/18 Range/Units 00:19 00:25 WBC (4.23-9.07) K/mm3 RBC (4.63-6.08) M/mm3 Hgb (13.7-17.5) gm/L Hct (40.1-51.0) % MCV (79.0-92.2) fl MCH (25.7-32.2) pg MCHC (32.2-35.5) g/dl RDW Std Deviation (35.1-43.9) fL Plt Count (163-337) K/mm3 MPV (9.4-12.3) fl Neut % (Auto) (34.0-67.9) % Lymph % (Auto) (21.8-53.1) % [place] % (Auto) (5.3-12.2) % Eos % (Auto) (0.8-7.0) Baso % (Auto) (0.1-1.2) % Neut # (Auto) (1.78-5.38) K/mm3 Lymph # (Auto) (1.32-3.57) K/mm3 [place] # (Auto) (0.30-0.82) K/mm3 Eos # (Auto) (0.04-0.54) K/mm3 Baso # (Auto) (0.01-0.08) K/mm3 Sodium (136-145) mEq/L Potassium (3.5-5.1) mEq/L Chloride (98-107) mEq/L Carbon Dioxide (21-32) mEq/L Anion Gap (5-15) BUN (7-18) mg/dL Creatinine (0.7-1.3) mg/dL Est Cr Clr Drug Dosing mL/min Estimated GFR (MDRD) (>60) mL/min BUN/Creatinine Ratio (14-18) Glucose (74-106) mg/dL Lactic Acid 0.9 (0.4-2.0) mmol/L Calcium (8.5-10.1) mg/dL Total Bilirubin (0.2-1.0) mg/dL AST (15-37) U/L ALT (16-63) U/L Alkaline Phosphatase (46-116) U/L Total Protein (6.4-8.2) g/dl Albumin (3.4-5.0) g/dl Globulin gm/dL Albumin/Globulin Ratio (1-2) Lipase (73-393) U/L Urine Color Yellow (Yellow) Urine Appearance Clear (Clear) Urine pH 6.0 (5.0-8.0) Ur Specific [place] 1.025 (1.005-1.030) Urine Protein Trace H (Negative) Urine Glucose (UA) Negative (Negative) Urine Ketones Negative (Negative) Urine Occult Blood Negative (Negative) Urine Nitrite Negative (Negative) Urine Bilirubin Negative (Negative) Urine Urobilinogen 0.2 (0.2-1.0) Ur Leukocyte Esterase Negative (Negative) Urine RBC 0-5 (0-5) /hpf Urine WBC 0-5 (0-5) /hpf Ur Epithelial Cells 0-5 (0-5) /hpf Urine Bacteria Not seen (FEW) /hpf Urine Mucus Moderate H (FEW) /hpf Result Diagrams: 03/30/18 05:34 03/30/18 05:34 Problem List Initiated/Reviewed/Updated: Yes Orders Last 24hrs: Active Orders 24 hr Category Date Time Status Admission Status [Patient Status] [ADT] Routine ADT 03/30/18 02:59 Active Fecal Occult Blood Collection [RC] ASDIRECTED Care 03/30/18 00:11 Active RT Aerosol Therapy [RC] ASDIRECTED Care 03/30/18 02:00 Active Abdomen Pelvis w Cont [CT] Stat Exams 03/30/18 00:09 Taken UA W/MICROSCOPIC [URIN] Stat Lab 03/30/18 00:19 Ordered Sodium Chloride 0.9% [Normal Saline] 1,000 ml Med 03/30/18 00:15 Active IV ASDIRECTED Medication Orders Sodium Chloride (Normal Saline) 1,000 mls @ 150 mls/hr IV ASDIRECTED KATHY Last Admin: 03/30/18 00:21 Dose: 150 mls/hr Assessment/Plan Comment:: Assessment/Plan: Acute: Colitis - Infectious vs Inflammatory (IBD, Celiac, Intestinal Sprue, Eosinophilic and others)/Hypersensitivity: IBS, Lactose Intolerance - CT scan reveals regions of wall thickening of the colon, most notable in the mid transverse colon - Has GERD, intermittent abdominal cramps, BRBPR, bloating, and some runny/ loose stool - Afebrile with mild leukocytosis - PMHx or FMHx of Autoimmune Disease or GI Malignancy - No unusual diet or drinks and no recent antibiotic use - No recent surgery or abdominal trauma - [place] hx/o travel [place] but admits to having been to [facility] for a camping trip - He denies intolerance to specific type of food although he gets pyrosis with spicy food - He is guaiac pos in ED - Infectious work up: Stool Cx, OP, C. Difficile, H. Pylori, Fecal Lactoferrin, Fecal WBC, and TTG IGA/G - If above tests are all negative then will proceed with inflammatory disease work up which would require colonoscopy in 4-6 weeks after treatment - Plan: IV hydration, IV Antibiotics, Probiotic, Anti-spastic and Anti- inflammatory Agents; Will d/c antibiotics if infectious work up are negative Hypokalemia - K 3.4 - 2/2 GI Loss - Replete and monitor Chronic: Asthma GERD Abdominal Cramps Obesity with BMI of 36 Plan: Admit to the floor Routine AM Labs PRN Meds for GI symptoms control NPO except ice chips, pills and sips of water until eval by GS Dietary consult for weight management Thyroid Panel UDS, CRP, ESR GS consult DVT PPx: Low risk; he is ambulatory GI PPx: PPI and H2B If infectious work up are all negative--> colonoscopy in 4-6 weeks
[2018-03-30] MEDS ORDERED: Promethazine 12.5 MG in Sodium Chloride 0.9% 50 ML IV PRN (03:11)
[2018-03-30] MEDS ORDERED: LORazepam 2 MG/ML SDV IV PRN (03:11)
[2018-03-30] MEDS ORDERED: Ondansetron 4 MG/2 ML SDV IV PRN (03:11)
[2018-03-30] MEDS ORDERED: HYDROmorphone 0.5 MG/0.5 ML SYRINGE IVPUSH PRN (03:11)
[2018-03-30] MEDS ORDERED: Albuterol/Ipratropium 3.0-0.5 MG/3 ML Neb Soln NEB PRN (03:11)
[2018-03-30] MEDS ORDERED: LORazepam 2 MG/ML SDV IVPUSH PRN (03:11)
[2018-03-30] MEDS ORDERED: Acetaminophen/HYDROcodone 325-5 MG Tab PO PRN (03:11)
[2018-03-30] MEDS ORDERED: hydrALAZINE 20 MG/ML SDV IVPUSH PRN (03:11)
[2018-03-30] MEDS ORDERED: Pantoprazole 40 MG Vial IVPUSH ONE (03:11)
[2018-03-30] MEDS ORDERED: Acetaminophen 325 MG Tab PO PRN (03:11)
[2018-03-30] MEDS ORDERED: Metoprolol Tartrate 5 MG/5 ML SDV IVPUSH PRN (03:11)
[2018-03-30] MEDS ORDERED: Temazepam 15 MG Cap PO PRN (03:11)
[2018-03-30] MEDS: Potassium Chloride 20 MEQ Tab.ER PO SCH ×3 (04:06→06:54)
[2018-03-30] MEDS: Saccharomyces Boulardii (Probiotic) 250 MG Cap PO SCH ×4 (05:36→20:52)
[2018-03-30] MEDS: metroNIDAZOLE/Normal Saline 500 MG in Premix Bag 1 BAG IV SCH ×3 (05:36→20:53)
[2018-03-30] MEDS ORDERED: Dicyclomine 10 MG Cap PO PRN (05:55)
[2018-03-30] MEDS: Mesalamine 800 MG Tab.CR PO SCH ×3 (06:15→20:54)
[2018-03-30] MEDS: Levofloxacin/Dextrose 5%-Water 500 MG in Premix Bag 1 BAG IV SCH (06:55)
[2018-03-30] MEDS ORDERED: Magnesium Oxide 400 MG Tab PO ONE (08:30)
[2018-03-30] MEDS ORDERED: Potassium Chloride 20 MEQ Tab.ER PO ONE (09:00)
[2018-03-30] MEDS: Famotidine 20 MG/2 ML SDV IVPUSH SCH ×2 (09:21→20:52)
--- NOTE | 2018-03-30 10:14 | CT ---
CT abdomen and pelvis Technique: Multiple axial sections were obtained from above the dome of the diaphragm inferiorly through the pubic symphysis. Intravenous and oral contrast was utilized. Delayed images were obtained through the bladder. Findings: Liver shows fatty infiltration. No focal abnormality is seen within the liver. Spleen appears within normal limits. Visualized lung bases show nothing acute. Adrenal glands show no nodule. Pancreas appears normal. Gallbladder contains no calcified gallstones. Kidneys show symmetric contrast enhancement without hydronephrosis or mass. Aorta shows no aneurysmal dilatation. No retroperitoneal adenopathy or mesenteric abnormalities are seen. No pelvic mass or adenopathy is seen. Delayed images show contrast within the distal ureters and within the bladder. Bowel wall thickening with low density edema is seen within the colon most prominent within the transverse colon. Lesser findings are seen within the descending colon. Bone window settings were reviewed which appear within normal limits for the patient's age. Impression: 1. Colonic wall thickening with wall edema. Findings compatible with nonspecific colitis. 2. Liver shows fatty infiltration. Other normal findings as noted above. Diagnostic code #3 I agree with preliminary report issued by [employer] ([facility] report finalized on 03/30/18, 2:58 AM Central Time)
[2018-03-30] MEDS: FLUTICASONE PROPIONATE INH SCH ×2 (14:00→20:44)
[2018-03-30] MEDS ORDERED: Albuterol 6.7 GM Inhaler INH PRN (16:54)
[2018-03-30] MEDS ORDERED: Fluticasone Propionate 110 MCG/Puff 12 GM Inhaler INH SCH (21:00)
[2018-03-31] MEDS: metroNIDAZOLE/Normal Saline 500 MG in Premix Bag 1 BAG IV SCH ×3 (05:02→20:44)
[2018-03-31] MEDS: Albuterol 6.7 GM Inhaler *** PATIENT'S OWN INH PRN ×2 (05:12→09:10)
[2018-03-31] MEDS: Levofloxacin/Dextrose 5%-Water 500 MG in Premix Bag 1 BAG IV SCH (06:02)
[2018-03-31] MEDS: Mesalamine 800 MG Tab.CR PO SCH ×3 (06:22→20:44)
[2018-03-31] MEDS: Saccharomyces Boulardii (Probiotic) 250 MG Cap PO SCH ×3 (08:05→20:44)
[2018-03-31] MEDS: Famotidine 20 MG Tab PO SCH ×2 (08:05→20:44)
[2018-03-31] MEDS: Sodium Chloride 0.9% 1,000 ML IV SCH ×3 (08:08→21:56)
[2018-03-31] MEDS: FLUTICASONE PROPIONATE INH SCH ×2 (09:08→20:19)
--- NOTE | 2018-03-31 14:43 | PCM.PN ---
<Eli Alejandro - Last Filed: 03/31/18 18:39> - General Info Date of Service: 03/31/18 Admission Dx/Problem (Free Text): Admission Diagnosis/Problem Admission Diagnosis/Problem Colitis Subjective Update: In to see [facility]. He is laying in bed. Overall he is feeling much better. Pain is controlled. Ambulating. Urinating. I discussed his results with him and that although we are still awaiting some results, it seems that this may be more of an inflammatory rather than infectious issue. Will advance to soft diet today, continue IVF and antibiotics for one more day. We discussed the recommendation for GI follow up and colonoscopy as well as establishing a PCP for f/u after discharge. He states he used to see Jeyson Nolen PA-C. No concerns from nursing. He will likely be d/c'd tomorrow pending clinical disposition. Functional Status: Reports: Pain Controlled, Tolerating Diet, Ambulating, Urinating - Review of Systems General: Reports: No Symptoms. Denies: Fever, Chills HEENT: Reports: No Symptoms Pulmonary: Reports: No Symptoms. Denies: Shortness of Breath, Cough Cardiovascular: Reports: No Symptoms Gastrointestinal: Reports: Abdominal Pain (mild, improving), Flatus, Other ( loose stool). Denies: Constipation, Diarrhea, Hematochezia, Nausea (improving) , Vomiting Genitourinary: Reports: No Symptoms. Denies: Dysuria, Frequency, Burning, Pain , Urgency Musculoskeletal: Reports: No Symptoms Skin: Reports: No Symptoms Neurological: Reports: No Symptoms Psychiatric: Reports: No Symptoms - Patient Data Vitals - Most Recent: Last Vital Signs Temp 97.9 F 03/31/18 14:31 Pulse 67 03/31/18 14:31 Resp 16 03/31/18 14:31 BP 131/74 03/31/18 14:31 Pulse Ox 98 03/31/18 14:31 Weight - Most Recent: 122.878 kg I&O - Last 24 Hours: Intake & Output 03/30/18 03/31/18 03/31/18 22:59 06:59 14:59 Intake Total 4200 2296 480 Output Total 3 Balance 4197 2296 480 Lab Results Last 24 Hours: Laboratory Results - last 24 hr 03/31/18 03/31/18 Range/Units 06:03 06:03 WBC 7.76 (4.23-9.07) K/mm3 RBC 4.73 (4.63-6.08) M/mm3 Hgb 13.5 L (13.7-17.5) gm/L Hct 39.4 L (40.1-51.0) % MCV 83.3 (79.0-92.2) fl MCH 28.5 (25.7-32.2) pg MCHC 34.3 (32.2-35.5) g/dl RDW Std Deviation 38.8 (35.1-43.9) fL Plt Count 188 (163-337) K/mm3 MPV 10.4 (9.4-12.3) fl Neut % (Auto) 55.0 (34.0-67.9) % Lymph % (Auto) 30.8 (21.8-53.1) % [place] % (Auto) 9.7 (5.3-12.2) % Eos % (Auto) 3.9 (0.8-7.0) Baso % (Auto) 0.3 (0.1-1.2) % Neut # (Auto) 4.28 (1.78-5.38) K/mm3 Lymph # (Auto) 2.39 (1.32-3.57) K/mm3 [place] # (Auto) 0.75 (0.30-0.82) K/mm3 Eos # (Auto) 0.30 (0.04-0.54) K/mm3 Baso # (Auto) 0.02 (0.01-0.08) K/mm3 Manual Slide Review Not Reportable Sodium 142 (136-145) mEq/L Potassium 3.9 (3.5-5.1) mEq/L Chloride 109 H (98-107) mEq/L Carbon Dioxide 24 (21-32) mEq/L Anion Gap 12.9 (5-15) BUN 7 (7-18) mg/dL Creatinine 0.9 (0.7-1.3) mg/dL Est Cr Clr Drug Dosing 131.31 mL/min Estimated GFR (MDRD) > 60 (>60) mL/min BUN/Creatinine Ratio 7.8 L (14-18) Glucose 100 (74-106) mg/dL Calcium 7.9 L (8.5-10.1) mg/dL Magnesium 2.0 (1.8-2.4) mg/dl C-Reactive Protein 0.6 (<1.0) mg/dL Kalia Results Last 24 Hours: Microbiology 03/30/18 06:00 Stool Lactoferrin - Final Stool / Feces Med Orders - Current: Current Medications Acetaminophen (Tylenol) 650 mg PO Q4H PRN PRN Reason: Pain (Mild 1-3)/fever Hydrocodone Bitart/Acetaminophen ([place] 325-5 Mg) 1 tab PO Q4H PRN PRN Reason: Pain (moderate 4-6) Albuterol (Proventil Hfa) 0 gm INH Q2H PRN PRN Reason: wheezing or SOB Last Admin: 03/31/18 09:10 Dose: 2 puff Albuterol/Ipratropium (Duoneb 3.0-0.5 Mg/3 Ml) 3 ml NEB Q4H PRN PRN Reason: Shortness Of Breath/wheezing Last Admin: 03/30/18 13:17 Dose: 3 ml Dicyclomine HCl (Bentyl) 10 mg PO QIDACANDBED PRN PRN Reason: Abdominal Pain Last Admin: 03/30/18 06:15 Dose: 10 mg Famotidine (Pepcid) 20 mg PO BID [facility] Last Admin: 03/31/18 08:05 Dose: 20 mg Fluticasone Propionate (Flovent Hfa 110 Mcg) 0 gm INH BID [facility] Last Admin: 03/31/18 09:08 Dose: 2 puff Hydralazine HCl (Apresoline) 20 mg IVPUSH Q4H PRN PRN Reason: Hypertension Hydromorphone HCl (Dilaudid) 0.5 mg IVPUSH Q2H PRN PRN Reason: Pain (severe 7-10) Sodium Chloride (Normal Saline) 1,000 mls @ 150 mls/hr IV ASDIRECTED [facility] Last Admin: 03/31/18 14:26 Dose: 150 mls/hr Promethazine HCl 12.5 mg/ (Sodium Chloride) 50.5 mls @ 100 mls/hr IV Q6H PRN PRN Reason: Nausea/Vomiting Levofloxacin/Dextrose 500 mg/ (Premix) 100 mls @ 100 mls/hr IV Q24H [facility] Last Admin: 03/31/18 06:02 Dose: 100 mls/hr Metronidazole 500 mg/ Premix 100 mls @ 100 mls/hr IV Q8H [facility] Last Admin: 03/31/18 13:25 Dose: 100 mls/hr Lorazepam (Ativan) 2 mg IVPUSH Q4H PRN PRN Reason: Seizures Lorazepam (Ativan) 1 mg IV Q6H PRN PRN Reason: Anxiety Mesalamine (Asacol Hd) 800 mg PO TID@0700,1400,2100 [facility] Last Admin: 03/31/18 14:25 Dose: 800 mg Metoprolol Tartrate (Lopressor) 5 mg IVPUSH Q4H PRN PRN Reason: Tachycardia Ondansetron HCl (Zofran) 4 mg IV Q6H PRN PRN Reason: Nausea/Vomiting Last Admin: 03/30/18 12:39 Dose: 4 mg Saccharomyces Boulardii (Florastor) 250 mg PO BID [facility] Last Admin: 03/31/18 09:41 Dose: Not Given Temazepam (Restoril) 15 mg PO BEDTIME PRN PRN Reason: Sleep Discontinued Medications Albuterol (Proventil Neb Soln) 5 mg NEB ONETIME ONE Stop: 03/30/18 02:01 Last Admin: 03/30/18 02:05 Dose: 5 mg Al Hydroxide/Mg Hydroxide 30 (ml/ Lidocaine HCl 15 ml) 0 ml PO ONETIME ONE Stop: 03/29/18 23:41 Last Admin: 03/29/18 23:45 Dose: 45 ml Diatrizoate Meglum/Diatrizoate Sod (Gastrografin 37%) 90 ml PO ONETIME ONE Stop: 03/30/18 01:30 Last Admin: 03/30/18 01:42 Dose: 90 ml Famotidine (Pepcid) 20 mg IVPUSH ONETIME ONE Stop: 03/30/18 00:12 Last Admin: 03/30/18 00:24 Dose: 20 mg Famotidine (Pepcid) 20 mg IVPUSH BID [facility] Stop: 03/30/18 21:01 Last Admin: 03/30/18 20:52 Dose: 20 mg Iopamidol (Isovue-300 (61%)) 125 ml IVPUSH ONETIME ONE Stop: 03/30/18 01:30 Last Admin: 03/30/18 01:42 Dose: 125 ml Magnesium Oxide (Magnesium Oxide) 800 mg PO ONETIME ONE Stop: 03/30/18 08:31 Last Admin: 03/30/18 09:21 Dose: 800 mg Magnesium Sulfate (Pharmacy To Dose - Magnesium Replacement) 0 dose .XX ASDIRECTED PRN PRN Reason: RX TO WATCH MAG LEVELS Pantoprazole Sodium (Protonix Iv) 40 mg IVPUSH ONETIME ONE Stop: 03/30/18 03:12 Last Admin: 03/30/18 04:08 Dose: 40 mg Potassium Chloride (Pharmacy To Dose - Potassium Replacement) 0 dose .XX ASDIRECTED PRN PRN Reason: RX TO WATCH K LEVELS Potassium Chloride (Klor-Con M20) 40 meq PO Q4H [facility] Stop: 03/30/18 07:31 Last Admin: 03/30/18 06:54 Dose: Not Given Potassium Chloride (Klor-Con M20) 40 meq PO ONETIME ONE Stop: 03/30/18 09:01 Last Admin: 03/30/18 09:21 Dose: 40 meq Saccharomyces Boulardii (Florastor) 250 mg PO TID [facility] Last Admin: 03/31/18 08:05 Dose: 250 mg - Exam Quality Assessment: DVT Prophylaxis. No: Supplemental Oxygen General: Alert, Oriented, Cooperative, No Acute Distress HEENT: Pupils Equal, Pupils Reactive, EOMI, Mucous Membr. Moist/[place] Neck: Supple Lungs: Clear to Auscultation, Normal Respiratory Effort Cardiovascular: Regular Rate, Regular Rhythm GI/Abdominal Exam: Normal Bowel Sounds, Soft, Non-Tender, No Organomegaly, No Distention, No Abnormal Bruit, No Mass, Pelvis Stable (Male) Exam: Deferred Back Exam: Normal Inspection, Full Range of Motion Extremities: Normal Inspection, Normal Range of Motion, Non-Tender, No Pedal Edema, Normal Capillary Refill Peripheral Pulses: 3+: Posterior Tibial (L), Posterior Tibial (R), Dorsalis Pedis (L), Dorsalis Pedis (R) Skin: Warm, Dry, Intact Neurological: No New Focal Deficit Psy/Mental Status: Alert, Normal Affect, Normal Mood - Problem List & Annotations (1) Abdominal pain SNOMED Code(s): 93991833 Code(s): R10.9 - UNSPECIFIED ABDOMINAL PAIN Status: Acute Priority: High Current Visit: Yes Qualifiers: Abdominal location: generalized Qualified Code(s): R10.84 - Generalized abdominal pain (2) Colitis SNOMED Code(s): 89552374 Code(s): K52.9 - NONINFECTIVE GASTROENTERITIS AND COLITIS, UNSPECIFIED Status: Acute Priority: High Current Visit: Yes (3) Hypokalemia SNOMED Code(s): 87653126 Code(s): E87.6 - HYPOKALEMIA Status: Acute Priority: Medium Current Visit: Yes - Problem List Review Problem List Initiated/Reviewed/Updated: Yes - Plan Plan:: Assessment/Plan: Acute: Colitis * Infectious vs Inflammatory (IBD, Celiac, Intestinal Sprue, Eosinophilic and others)/Hypersensitivity: IBS, Lactose Intolerance * CT scan reveals regions of wall thickening of the colon, most notable in the mid transverse colon * Has GERD, intermittent abdominal cramps, BRBPR, bloating, and some runny/ loose stool * Afebrile with mild leukocytosis * No PMHx or FMHx of Autoimmune Disease or GI Malignancy * No unusual diet or drinks and no recent antibiotic use * No recent surgery or abdominal trauma * No hx/o travel to [place] but admits to having been to [facility] for a camping trip * He denies intolerance to specific type of food although he gets pyrosis with spicy food * He is guaiac pos in ED * CRP 1.6-->0.6; ESR 13 * Infectious work up: * Stool Cx, OP, and TTG IGA/G pending * Fecal Lactoferrin positive * C. Difficile, H. Pylori, Fecal WBC negative * Most likely inflammatory in nature, proceed with inflammatory disease work up: * GI f/u and colonoscopy in 4-6 weeks after treatment * Plan: * Advance to soft diet * Continue IVF * IV Antibiotics until tomorrow with Probiotic * Anti-spastic and Anti-inflammatory Agents Resolved: Hypokalemia, Resolved * K 3.4-->3.9 * 2/2 GI Loss * Replete and monitor Chronic: Asthma GERD Abdominal Cramps Obesity with BMI of 36 Plan: Admit to the floor Routine AM Labs PRN Meds for GI symptoms control Advance to soft diet Dietary consult for weight management Thyroid Panel--> normal GS consult DVT PPx: SCDs, Ambulation GI PPx: PPI and H2B Recommend GI f/u and colonoscopy in 4-6 weeks Recommend f/u with PCP, used to see Jeyson Nolen PA-C. Most likely D/C tomorrow pending disposition <Nicki Mccord M - Last Filed: 04/01/18 18:45> - Patient Data Vitals - Most Recent: Last Vital Signs Temp 36.1 C 04/01/18 08:33 Pulse 63 04/01/18 08:33 Resp 16 04/01/18 08:33 BP 131/82 04/01/18 08:33 Pulse Ox 96 04/01/18 08:33 I&O - Last 24 Hours: Intake & Output 04/01/18 04/01/18 04/01/18 06:59 14:59 22:59 Intake Total 2471 400 Balance 2471 400 Lab Results Last 24 Hours: Laboratory Results - last 24 hr 04/01/18 04/01/18 Range/Units 05:45 05:45 WBC 6.86 (4.23-9.07) K/mm3 RBC 4.88 (4.63-6.08) M/mm3 Hgb 13.9 (13.7-17.5) gm/L Hct 40.3 (40.1-51.0) % MCV 82.6 (79.0-92.2) fl MCH 28.5 (25.7-32.2) pg MCHC 34.5 (32.2-35.5) g/dl RDW Std Deviation 38.1 (35.1-43.9) fL Plt Count 193 (163-337) K/mm3 MPV 10.3 (9.4-12.3) fl Neut % (Auto) 59.0 (34.0-67.9) % Lymph % (Auto) 28.3 (21.8-53.1) % [place] % (Auto) 8.5 (5.3-12.2) % Eos % (Auto) 3.6 (0.8-7.0) Baso % (Auto) 0.3 (0.1-1.2) % Neut # (Auto) 4.05 (1.78-5.38) K/mm3 Lymph # (Auto) 1.94 (1.32-3.57) K/mm3 [place] # (Auto) 0.58 (0.30-0.82) K/mm3 Eos # (Auto) 0.25 (0.04-0.54) K/mm3 Baso # (Auto) 0.02 (0.01-0.08) K/mm3 Sodium 141 (136-145) mEq/L Potassium 3.8 (3.5-5.1) mEq/L Chloride 108 H (98-107) mEq/L Carbon Dioxide 25 (21-32) mEq/L Anion Gap 11.8 (5-15) BUN 10 (7-18) mg/dL Creatinine 0.9 (0.7-1.3) mg/dL Est Cr Clr Drug Dosing 131.31 mL/min Estimated GFR (MDRD) > 60 (>60) mL/min BUN/Creatinine Ratio 11.1 L (14-18) Glucose 105 (74-106) mg/dL Calcium 8.1 L (8.5-10.1) mg/dL Magnesium 1.9 (1.8-2.4) mg/dl C-Reactive Protein 0.2 (<1.0) mg/dL Kalia Results Last 24 Hours: Microbiology 03/31/18 16:01 - Final Stool / Feces NEGATIVE FOR SHIGA TOXIN 1 - Final NEGATIVE FOR SHIGA TOXIN 2 Med Orders - Current: Current Medications Acetaminophen (Tylenol) 650 mg PO Q4H PRN PRN Reason: Pain (Mild 1-3)/fever Hydrocodone Bitart/Acetaminophen ([place] 325-5 Mg) 1 tab PO Q4H PRN PRN Reason: Pain (moderate 4-6) Albuterol (Proventil Hfa) 0 gm INH Q2H PRN PRN Reason: wheezing or SOB Last Admin: 03/31/18 09:10 Dose: 2 puff Albuterol/Ipratropium (Duoneb 3.0-0.5 Mg/3 Ml) 3 ml NEB Q4H PRN PRN Reason: Shortness Of Breath/wheezing Last Admin: 03/30/18 13:17 Dose: 3 ml Dicyclomine HCl (Bentyl) 10 mg PO QIDACANDBED PRN PRN Reason: Abdominal Pain Last Admin: 03/30/18 06:15 Dose: 10 mg Famotidine (Pepcid) 20 mg PO BID [facility] Last Admin: 04/01/18 09:17 Dose: 20 mg Fluticasone Propionate (Flovent Hfa 110 Mcg) 0 gm INH BID [facility] Last Admin: 04/01/18 10:18 Dose: 2 puff Hydralazine HCl (Apresoline) 20 mg IVPUSH Q4H PRN PRN Reason: Hypertension Hydromorphone HCl (Dilaudid) 0.5 mg IVPUSH Q2H PRN PRN Reason: Pain (severe 7-10) Sodium Chloride (Normal Saline) 1,000 mls @ 150 mls/hr IV ASDIRECTED [facility] Last Admin: 04/01/18 04:28 Dose: 150 mls/hr Promethazine HCl 12.5 mg/ (Sodium Chloride) 50.5 mls @ 100 mls/hr IV Q6H PRN PRN Reason: Nausea/Vomiting Levofloxacin/Dextrose 500 mg/ (Premix) 100 mls @ 100 mls/hr IV Q24H [facility] Last Admin: 04/01/18 05:29 Dose: 100 mls/hr Metronidazole 500 mg/ Premix 100 mls @ 100 mls/hr IV Q8H [facility] Last Admin: 04/01/18 04:26 Dose: 100 mls/hr Lorazepam (Ativan) 2 mg IVPUSH Q4H PRN PRN Reason: Seizures Lorazepam (Ativan) 1 mg IV Q6H PRN PRN Reason: Anxiety Mesalamine (Asacol Hd) 800 mg PO TID@0700,1400,2100 [facility] Last Admin: 04/01/18 06:12 Dose: 800 mg Metoprolol Tartrate (Lopressor) 5 mg IVPUSH Q4H PRN PRN Reason: Tachycardia Ondansetron HCl (Zofran) 4 mg IV Q6H PRN PRN Reason: Nausea/Vomiting Last Admin: 03/30/18 12:39 Dose: 4 mg Saccharomyces Boulardii (Florastor) 250 mg PO BID [facility] Last Admin: 04/01/18 09:17 Dose: 250 mg Temazepam (Restoril) 15 mg PO BEDTIME PRN PRN Reason: Sleep Discontinued Medications Albuterol (Proventil Neb Soln) 5 mg NEB ONETIME ONE Stop: 03/30/18 02:01 Last Admin: 03/30/18 02:05 Dose: 5 mg Al Hydroxide/Mg Hydroxide 30 (ml/ Lidocaine HCl 15 ml) 0 ml PO ONETIME ONE Stop: 03/29/18 23:41 Last Admin: 03/29/18 23:45 Dose: 45 ml Diatrizoate Meglum/Diatrizoate Sod (Gastrografin 37%) 90 ml PO ONETIME ONE Stop: 03/30/18 01:30 Last Admin: 03/30/18 01:42 Dose: 90 ml Famotidine (Pepcid) 20 mg IVPUSH ONETIME ONE Stop: 03/30/18 00:12 Last Admin: 03/30/18 00:24 Dose: 20 mg Famotidine (Pepcid) 20 mg IVPUSH BID [facility] Stop: 03/30/18 21:01 Last Admin: 03/30/18 20:52 Dose: 20 mg Iopamidol (Isovue-300 (61%)) 125 ml IVPUSH ONETIME ONE Stop: 03/30/18 01:30 Last Admin: 03/30/18 01:42 Dose: 125 ml Magnesium Oxide (Magnesium Oxide) 800 mg PO ONETIME ONE Stop: 03/30/18 08:31 Last Admin: 03/30/18 09:21 Dose: 800 mg Magnesium Sulfate (Pharmacy To Dose - Magnesium Replacement) 0 dose .XX ASDIRECTED PRN PRN Reason: RX TO WATCH MAG LEVELS Pantoprazole Sodium (Protonix Iv) 40 mg IVPUSH ONETIME ONE Stop: 03/30/18 03:12 Last Admin: 03/30/18 04:08 Dose: 40 mg Potassium Chloride (Pharmacy To Dose - Potassium Replacement) 0 dose .XX ASDIRECTED PRN PRN Reason: RX TO WATCH K LEVELS Potassium Chloride (Klor-Con M20) 40 meq PO Q4H [facility] Stop: 03/30/18 07:31 Last Admin: 03/30/18 06:54 Dose: Not Given Potassium Chloride (Klor-Con M20) 40 meq PO ONETIME ONE Stop: 03/30/18 09:01 Last Admin: 03/30/18 09:21 Dose: 40 meq Saccharomyces Boulardii (Florastor) 250 mg PO TID [facility] Last Admin: 03/31/18 08:05 Dose: 250 mg - Plan Plan:: Greatly improved, diet advanced as tolerated; DX colitis, NOS-->needs GI consult at [place]. patient is agreeable for PCP, and GI as an outpatient.
--- NOTE | 2018-03-31 19:29 | PCM.DCSUM1 ---
<Eli Alejandro - Last Filed: 04/01/18 09:45> Discharge Summary - Hospital Course HPI Initial Comments: Patient is 28-year-old male presents emergency department complaining of bloody stool. Approximately 11:00 yesterday patient began having abdominal pain That he thought would pass. He took some Tums and other things [id number] felt a little better but went to the bathroom and had a bloody bowel movement and was concerned so he came to the emergency department. Patient continues to have abdominal discomfort. He describes it as a aching kind of feeling. He denies any black stools, no vomiting, no chest pain or shortness of breath no new rashes itches or joint pains at this time. Diagnosis: Stroke: No - Discharge Data Discharge Date: 04/01/18 (ADMIT 03/30/18) Discharge Disposition: Home, Self-Care 01 Condition: Good - Discharge Diagnosis/Problem(s) (1) Abdominal pain SNOMED Code(s): 91699508 ICD Code: R10.9 - UNSPECIFIED ABDOMINAL PAIN Status: Acute Priority: High Current Visit: Yes Qualifiers: Abdominal location: generalized Qualified Code(s): R10.84 - Generalized abdominal pain (2) Colitis SNOMED Code(s): 03341413 ICD Code: K52.9 - NONINFECTIVE GASTROENTERITIS AND COLITIS, UNSPECIFIED Status: Acute Priority: High Current Visit: Yes (3) Hypokalemia SNOMED Code(s): 18976316 ICD Code: E87.6 - HYPOKALEMIA Status: Acute Priority: Medium Current Visit: Yes - Patient Summary/Data Operative Procedure(s) Performed: none Complications: none Consults: Consultations 03/30/18 03:11 Consult to Case Management [CONS] Routine Consult to Physician [CONS] Routine Consult to Tool Turret Lathe Set Up Operator [CONS] Routine 03/30/18 03:19 Consult to Dietary [Consult to Bar Porter] [CONS] Routine Labs Pending at D/C: Stool Cx, OP, and TTG IGA/G pending Recommended Follow-up Testing/Procedures: Follow up with PCP, Jeyson Nolen PA-C, in 7- 10 days. Follow up with GI specialist for follow up and colonoscopy in 4-6 weeks after treatment Planned Operative Procedure(s) after DC: none Hospital Course: Assessment/Plan: Acute: Colitis * Infectious vs Inflammatory (IBD, Celiac, Intestinal Sprue, Eosinophilic and others)/Hypersensitivity: IBS, Lactose Intolerance * CT scan reveals regions of wall thickening of the colon, most notable in the mid transverse colon * Has GERD, intermittent abdominal cramps, BRBPR, bloating, and some runny/ loose stool * Afebrile with mild leukocytosis * No PMHx or FMHx of Autoimmune Disease or GI Malignancy * No unusual diet or drinks and no recent antibiotic use * No recent surgery or abdominal trauma * No hx/o travel to [place] but admits to having been to [facility] for a camping trip * He denies intolerance to specific type of food although he gets pyrosis with spicy food * He is guaiac pos in ED * CRP 1.6-->0.6; ESR 13 * Infectious work up: * Stool Cx, OP, and TTG IGA/G pending * Fecal Lactoferrin positive * C. Difficile, H. Pylori, Fecal WBC negative * Most likely inflammatory in nature, proceed with inflammatory disease work up: * GI f/u and colonoscopy in 4-6 weeks after treatment * Plan: * Advance to soft diet * Continue IVF * IV Antibiotics until tomorrow with Probiotic * Anti-spastic and Anti-inflammatory Agents Resolved: Hypokalemia, Resolved * K 3.4-->3.9 * 2/2 GI Loss * Replete and monitor Chronic: Asthma GERD Abdominal Cramps Obesity with BMI of 36 Plan: Admit to the floor Routine AM Labs PRN Meds for GI symptoms control Advance to soft diet Dietary consult for weight management Thyroid Panel--> normal GS consult DVT PPx: SCDs, Ambulation GI PPx: PPI and H2B Recommend GI f/u and colonoscopy in 4-6 weeks Recommend f/u with PCP, used to see [facility] Jett/Michael home today Avtar has recovered well here after being admitted for Colitis. His workup for Infectious colitis has thus far been negative, but we are still awaiting Stool Cx and OP and will forward results to his PCP. So far his workup seems to be pointing toward an inflammatory colitis. Pt finished antibiotic treatment for possible infection and diet was advanced as tolerated. Electrolyte abnormalities were corrected while here and have now resolved. We recommend follow up with PCP in 7-10 days and then follow up with GI with colonoscopy in 4 -6 weeks. He will not be discharged on any new medications. - Patient Instructions Diet: Usual Diet as Tolerated Activity: As Tolerated Driving: May Drive Today Showering/Bathing: May Shower Notify Provider of: Fever, Increased Pain, Nausea and/or Vomiting - Discharge Plan *PRESCRIPTION DRUG MONITORING PROGRAM REVIEWED*: Not Applicable *COPY OF PRESCRIPTION DRUG MONITORING REPORT IN PATIENT ELISSA: Not Applicable Home Medications: Home Meds Albuterol [Proventil HFA] 2 inhalation INH Q2H PRN #1 inhaler 06/04/17 [Rx] Fluticasone Propionate [Flovent HFA 110 MCG] 2 puff INH BID 03/30/18 [History] Patient Handouts: Gastrointestinal Bleeding, [id number], Colitis Referrals: Jeyson Nolen PA-C [Physician Moving [employer]] - 04/14/18 9:00 am - Discharge Summary/Plan Comment DC Time >30 min.: Yes (40) - General Info Date of Service: 04/01/18 Admission Dx/Problem (Free Text: Admission Diagnosis/Problem Admission Diagnosis/Problem Colitis Subjective Update: In to see Avtar. He is laying in bed. Overall he is feeling much better. Pain is controlled. He is still having some loose stools, but is improving. Recommend BRAT diet at home and to advance diet as tolerated. Ambulating. Urinating. Tolerating Diet. We discussed the recommendation for GI follow up and colonoscopy as well as reestablishing with PCP Jeyson Nolen PA-C for f/u after discharge in 7-10 days. No concerns from nursing. He will be d/c'd home today. Functional Status: Reports: Pain Controlled, Tolerating Diet, Ambulating, Urinating - Review of Systems General: Reports: No Symptoms. Denies: Fever, Chills HEENT: Reports: No Symptoms Pulmonary: Reports: No Symptoms. Denies: Shortness of Breath, Cough Cardiovascular: Reports: No Symptoms. Denies: Chest Pain Gastrointestinal: Reports: No Symptoms. Denies: Abdominal Pain, Diarrhea, Nausea, Vomiting Genitourinary: Reports: No Symptoms. Denies: Dysuria, Frequency, Burning, Pain , Urgency Musculoskeletal: Reports: No Symptoms Skin: Reports: No Symptoms Neurological: Reports: No Symptoms Psychiatric: Reports: No Symptoms - Patient Data Vitals - Most Recent: Last Vital Signs Temp 98.2 F 07/19/18 18:15 Pulse 79 03/31/18 18:15 Resp 16 03/31/18 18:15 BP 133/84 03/31/18 18:15 Pulse Ox 99 03/31/18 18:15 Weight - Most Recent: 122.878 kg I&O - Last 24 hours: Intake & Output 03/31/18 03/31/18 03/31/18 06:59 14:59 22:59 Intake Total 2296 480 1220 Balance 2296 480 1220 Lab Results - Last 24 hrs: Laboratory Results - last 24 hr 03/31/18 03/31/18 Range/Units 06:03 06:03 WBC 7.76 (4.23-9.07) K/mm3 RBC 4.73 (4.63-6.08) M/mm3 Hgb 13.5 L (13.7-17.5) gm/L Hct 39.4 L (40.1-51.0) % MCV 83.3 (79.0-92.2) fl MCH 28.5 (25.7-32.2) pg MCHC 34.3 (32.2-35.5) g/dl RDW Std Deviation 38.8 (35.1-43.9) fL Plt Count 188 (163-337) K/mm3 MPV 10.4 (9.4-12.3) fl Neut % (Auto) 55.0 (34.0-67.9) % Lymph % (Auto) 30.8 (21.8-53.1) % Anson % (Auto) 9.7 (5.3-12.2) % Eos % (Auto) 3.9 (0.8-7.0) Baso % (Auto) 0.3 (0.1-1.2) % Neut # (Auto) 4.28 (1.78-5.38) K/mm3 Lymph # (Auto) 2.39 (1.32-3.57) K/mm3 Anson # (Auto) 0.75 (0.30-0.82) K/mm3 Eos # (Auto) 0.30 (0.04-0.54) K/mm3 Baso # (Auto) 0.02 (0.01-0.08) K/mm3 Manual Slide Review Not Reportable Sodium 142 (136-145) mEq/L Potassium 3.9 (3.5-5.1) mEq/L Chloride 109 H (98-107) mEq/L Carbon Dioxide 24 (21-32) mEq/L Anion Gap 12.9 (5-15) BUN 7 (7-18) mg/dL Creatinine 0.9 (0.7-1.3) mg/dL Est Cr Clr Drug Dosing 131.31 mL/min Estimated GFR (MDRD) > 60 (>60) mL/min BUN/Creatinine Ratio 7.8 L (14-18) Glucose 100 (74-106) mg/dL Calcium 7.9 L (8.5-10.1) mg/dL Magnesium 2.0 (1.8-2.4) mg/dl C-Reactive Protein 0.6 (<1.0) mg/dL DAISY Results - Last 24 hrs: Microbiology 03/30/18 06:00 Stool Lactoferrin - Final Stool / Feces Med Orders - Current: Current Medications Acetaminophen (Tylenol) 650 mg PO Q4H PRN PRN Reason: Pain (Mild 1-3)/fever Hydrocodone Bitart/Acetaminophen ([place] 325-5 Mg) 1 tab PO Q4H PRN PRN Reason: Pain (moderate 4-6) Albuterol (Proventil Hfa) 0 gm INH Q2H PRN PRN Reason: wheezing or SOB Last Admin: 03/31/18 09:10 Dose: 2 puff Albuterol/Ipratropium (Duoneb 3.0-0.5 Mg/3 Ml) 3 ml NEB Q4H PRN PRN Reason: Shortness Of Breath/wheezing Last Admin: 03/30/18 13:17 Dose: 3 ml Dicyclomine HCl (Bentyl) 10 mg PO QIDACANDBED PRN PRN Reason: Abdominal Pain Last Admin: 03/30/18 06:15 Dose: 10 mg Famotidine (Pepcid) 20 mg PO BID KATHY Last Admin: 03/31/18 08:05 Dose: 20 mg Fluticasone Propionate (Flovent Hfa 110 Mcg) 0 gm INH BID KATHY Last Admin: 03/31/18 09:08 Dose: 2 puff Hydralazine HCl (Apresoline) 20 mg IVPUSH Q4H PRN PRN Reason: Hypertension Hydromorphone HCl (Dilaudid) 0.5 mg IVPUSH Q2H PRN PRN Reason: Pain (severe 7-10) Sodium Chloride (Normal Saline) 1,000 mls @ 150 mls/hr IV ASDIRECTED [facility] Last Admin: 03/31/18 14:26 Dose: 150 mls/hr Promethazine HCl 12.5 mg/ (Sodium Chloride) 50.5 mls @ 100 mls/hr IV Q6H PRN PRN Reason: Nausea/Vomiting Levofloxacin/Dextrose 500 mg/ (Premix) 100 mls @ 100 mls/hr IV Q24H [facility] Last Admin: 03/31/18 06:02 Dose: 100 mls/hr Metronidazole 500 mg/ Premix 100 mls @ 100 mls/hr IV Q8H [facility] Last Admin: 03/31/18 13:25 Dose: 100 mls/hr Lorazepam (Ativan) 2 mg IVPUSH Q4H PRN PRN Reason: Seizures Lorazepam (Ativan) 1 mg IV Q6H PRN PRN Reason: Anxiety Mesalamine (Asacol Hd) 800 mg PO TID@0700,1400,2100 [facility] Last Admin: 03/31/18 14:25 Dose: 800 mg Metoprolol Tartrate (Lopressor) 5 mg IVPUSH Q4H PRN PRN Reason: Tachycardia Ondansetron HCl (Zofran) 4 mg IV Q6H PRN PRN Reason: Nausea/Vomiting Last Admin: 03/30/18 12:39 Dose: 4 mg Saccharomyces Boulardii (Florastor) 250 mg PO BID [facility] Last Admin: 03/31/18 09:41 Dose: Not Given Temazepam (Restoril) 15 mg PO BEDTIME PRN PRN Reason: Sleep Discontinued Medications Albuterol (Proventil Neb Soln) 5 mg NEB ONETIME ONE Stop: 03/30/18 02:01 Last Admin: 03/30/18 02:05 Dose: 5 mg Al Hydroxide/Mg Hydroxide 30 (ml/ Lidocaine HCl 15 ml) 0 ml PO ONETIME ONE Stop: 03/29/18 23:41 Last Admin: 03/29/18 23:45 Dose: 45 ml Diatrizoate Meglum/Diatrizoate Sod (Gastrografin 37%) 90 ml PO ONETIME ONE Stop: 03/30/18 01:30 Last Admin: 03/30/18 01:42 Dose: 90 ml Famotidine (Pepcid) 20 mg IVPUSH ONETIME ONE Stop: 03/30/18 00:12 Last Admin: 03/30/18 00:24 Dose: 20 mg Famotidine (Pepcid) 20 mg IVPUSH BID [facility] Stop: 03/30/18 21:01 Last Admin: 03/30/18 20:52 Dose: 20 mg Iopamidol (Isovue-300 (61%)) 125 ml IVPUSH ONETIME ONE Stop: 03/30/18 01:30 Last Admin: 03/30/18 01:42 Dose: 125 ml Magnesium Oxide (Magnesium Oxide) 800 mg PO ONETIME ONE Stop: 03/30/18 08:31 Last Admin: 03/30/18 09:21 Dose: 800 mg Magnesium Sulfate (Pharmacy To Dose - Magnesium Replacement) 0 dose .XX ASDIRECTED PRN PRN Reason: RX TO WATCH MAG LEVELS Pantoprazole Sodium (Protonix Iv) 40 mg IVPUSH ONETIME ONE Stop: 03/30/18 03:12 Last Admin: 03/30/18 04:08 Dose: 40 mg Potassium Chloride (Pharmacy To Dose - Potassium Replacement) 0 dose .XX ASDIRECTED PRN PRN Reason: RX TO WATCH K LEVELS Potassium Chloride (Klor-Con M20) 40 meq PO Q4H [facility] Stop: 03/30/18 07:31 Last Admin: 03/30/18 06:54 Dose: Not Given Potassium Chloride (Klor-Con M20) 40 meq PO ONETIME ONE Stop: 03/30/18 09:01 Last Admin: 03/30/18 09:21 Dose: 40 meq Saccharomyces Boulardii (Florastor) 250 mg PO TID [facility] Last Admin: 03/31/18 08:05 Dose: 250 mg - Exam General: Reports: Alert, Oriented HEENT: Reports: Pupils Equal, Pupils Reactive, EOMI, Mucous Membr. Moist/[place] Neck: Reports: Supple Lungs: Reports: Clear to Auscultation, Normal Respiratory Effort Cardiovascular: Reports: Regular Rate, Regular Rhythm GI/Abdominal Exam: Normal Bowel Sounds, Soft, Non-Tender, No Organomegaly, No Distention, No Abnormal Bruit, No Mass, Pelvis Stable (Male) Exam: Deferred Rectal (Males) Exam: Deferred Back Exam: Reports: Normal Inspection, Full Range of Motion Extremities: Normal Inspection, Normal Range of Motion, Non-Tender, No Pedal Edema, Normal Capillary Refill Skin: Reports: Warm, Dry, Intact Neurological: Reports: No New Focal Deficit Psy/Mental Status: Reports: Alert, Normal Affect, Normal Mood <Nicki Mccord Horacio - Last Filed: 04/01/18 18:47> Discharge Summary - Patient Summary/Data Consults: Consultations 03/30/18 03:11 Consult to Case Management [CONS] Routine Consult to Physician [CONS] Routine Consult to Tool Turret Lathe Set Up Operator [CONS] Routine 03/30/18 03:19 Consult to Dietary [Consult to Bar Porter] [CONS] Routine - Discharge Summary/Plan Comment Discharge Summary/Plan Comment: GI FOLLOW UP REQUIRED, PATIENT IS AGREEABLE; SEE ABOVE FOR DETAILS. - Patient Data Vitals - Most Recent: Last Vital Signs Temp 36.1 C 04/01/18 08:33 Pulse 63 04/01/18 08:33 Resp 16 04/01/18 08:33 BP 131/82 04/01/18 08:33 Pulse Ox 96 04/01/18 08:33 I&O - Last 24 hours: Intake & Output 04/01/18 04/01/18 04/01/18 06:59 14:59 22:59 Intake Total 2471 400 Balance 2471 400 Lab Results - Last 24 hrs: Laboratory Results - last 24 hr 04/01/18 04/01/18 Range/Units 05:45 05:45 WBC 6.86 (4.23-9.07) K/mm3 RBC 4.88 (4.63-6.08) M/mm3 Hgb 13.9 (13.7-17.5) gm/L Hct 40.3 (40.1-51.0) % MCV 82.6 (79.0-92.2) fl MCH 28.5 (25.7-32.2) pg MCHC 34.5 (32.2-35.5) g/dl RDW Std Deviation 38.1 (35.1-43.9) fL Plt Count 193 (163-337) K/mm3 MPV 10.3 (9.4-12.3) fl Neut % (Auto) 59.0 (34.0-67.9) % Lymph % (Auto) 28.3 (21.8-53.1) % Anson % (Auto) 8.5 (5.3-12.2) % Eos % (Auto) 3.6 (0.8-7.0) Baso % (Auto) 0.3 (0.1-1.2) % Neut # (Auto) 4.05 (1.78-5.38) K/mm3 Lymph # (Auto) 1.94 (1.32-3.57) K/mm3 Anson # (Auto) 0.58 (0.30-0.82) K/mm3 Eos # (Auto) 0.25 (0.04-0.54) K/mm3 Baso # (Auto) 0.02 (0.01-0.08) K/mm3 Sodium 141 (136-145) mEq/L Potassium 3.8 (3.5-5.1) mEq/L Chloride 108 H (98-107) mEq/L Carbon Dioxide 25 (21-32) mEq/L Anion Gap 11.8 (5-15) BUN 10 (7-18) mg/dL Creatinine 0.9 (0.7-1.3) mg/dL Est Cr Clr Drug Dosing 131.31 mL/min Estimated GFR (MDRD) > 60 (>60) mL/min BUN/Creatinine Ratio 11.1 L (14-18) Glucose 105 (74-106) mg/dL Calcium 8.1 L (8.5-10.1) mg/dL Magnesium 1.9 (1.8-2.4) mg/dl C-Reactive Protein 0.2 (<1.0) mg/dL DAISY Results - Last 24 hrs: Microbiology 03/31/18 16:01 - Final Stool / Feces NEGATIVE FOR SHIGA TOXIN 1 - Final NEGATIVE FOR SHIGA TOXIN 2 Med Orders - Current: Current Medications Acetaminophen (Tylenol) 650 mg PO Q4H PRN PRN Reason: Pain (Mild 1-3)/fever Hydrocodone Bitart/Acetaminophen ([place] 325-5 Mg) 1 tab PO Q4H PRN PRN Reason: Pain (moderate 4-6) Albuterol (Proventil Hfa) 0 gm INH Q2H PRN PRN Reason: wheezing or SOB Last Admin: 03/31/18 09:10 Dose: 2 puff Albuterol/Ipratropium (Duoneb 3.0-0.5 Mg/3 Ml) 3 ml NEB Q4H PRN PRN Reason: Shortness Of Breath/wheezing Last Admin: 03/30/18 13:17 Dose: 3 ml Dicyclomine HCl (Bentyl) 10 mg PO QIDACANDBED PRN PRN Reason: Abdominal Pain Last Admin: 03/30/18 06:15 Dose: 10 mg Famotidine (Pepcid) 20 mg PO BID [facility] Last Admin: 04/01/18 09:17 Dose: 20 mg Fluticasone Propionate (Flovent Hfa 110 Mcg) 0 gm INH BID [facility] Last Admin: 04/01/18 10:18 Dose: 2 puff Hydralazine HCl (Apresoline) 20 mg IVPUSH Q4H PRN PRN Reason: Hypertension Hydromorphone HCl (Dilaudid) 0.5 mg IVPUSH Q2H PRN PRN Reason: Pain (severe 7-10) Sodium Chloride (Normal Saline) 1,000 mls @ 150 mls/hr IV ASDIRECTED [facility] Last Admin: 04/01/18 04:28 Dose: 150 mls/hr Promethazine HCl 12.5 mg/ (Sodium Chloride) 50.5 mls @ 100 mls/hr IV Q6H PRN PRN Reason: Nausea/Vomiting Levofloxacin/Dextrose 500 mg/ (Premix) 100 mls @ 100 mls/hr IV Q24H [facility] Last Admin: 04/01/18 05:29 Dose: 100 mls/hr Metronidazole 500 mg/ Premix 100 mls @ 100 mls/hr IV Q8H [facility] Last Admin: 04/01/18 04:26 Dose: 100 mls/hr Lorazepam (Ativan) 2 mg IVPUSH Q4H PRN PRN Reason: Seizures Lorazepam (Ativan) 1 mg IV Q6H PRN PRN Reason: Anxiety Mesalamine (Asacol Hd) 800 mg PO TID@0700,1400,2100 [facility] Last Admin: 04/01/18 06:12 Dose: 800 mg Metoprolol Tartrate (Lopressor) 5 mg IVPUSH Q4H PRN PRN Reason: Tachycardia Ondansetron HCl (Zofran) 4 mg IV Q6H PRN PRN Reason: Nausea/Vomiting Last Admin: 03/30/18 12:39 Dose: 4 mg Saccharomyces Boulardii (Florastor) 250 mg PO BID [facility] Last Admin: 04/01/18 09:17 Dose: 250 mg Temazepam (Restoril) 15 mg PO BEDTIME PRN PRN Reason: Sleep Discontinued Medications Albuterol (Proventil Neb Soln) 5 mg NEB ONETIME ONE Stop: 03/30/18 02:01 Last Admin: 03/30/18 02:05 Dose: 5 mg Al Hydroxide/Mg Hydroxide 30 (ml/ Lidocaine HCl 15 ml) 0 ml PO ONETIME ONE Stop: 03/29/18 23:41 Last Admin: 03/29/18 23:45 Dose: 45 ml Diatrizoate Meglum/Diatrizoate Sod (Gastrografin 37%) 90 ml PO ONETIME ONE Stop: 03/30/18 01:30 Last Admin: 03/30/18 01:42 Dose: 90 ml Famotidine (Pepcid) 20 mg IVPUSH ONETIME ONE Stop: 03/30/18 00:12 Last Admin: 03/30/18 00:24 Dose: 20 mg Famotidine (Pepcid) 20 mg IVPUSH BID [facility] Stop: 03/30/18 21:01 Last Admin: 03/30/18 20:52 Dose: 20 mg Iopamidol (Isovue-300 (61%)) 125 ml IVPUSH ONETIME ONE Stop: 03/30/18 01:30 Last Admin: 03/30/18 01:42 Dose: 125 ml Magnesium Oxide (Magnesium Oxide) 800 mg PO ONETIME ONE Stop: 03/30/18 08:31 Last Admin: 03/30/18 09:21 Dose: 800 mg Magnesium Sulfate (Pharmacy To Dose - Magnesium Replacement) 0 dose .XX ASDIRECTED PRN PRN Reason: RX TO WATCH MAG LEVELS Pantoprazole Sodium (Protonix Iv) 40 mg IVPUSH ONETIME ONE Stop: 03/30/18 03:12 Last Admin: 03/30/18 04:08 Dose: 40 mg Potassium Chloride (Pharmacy To Dose - Potassium Replacement) 0 dose .XX ASDIRECTED PRN PRN Reason: RX TO WATCH K LEVELS Potassium Chloride (Klor-Con M20) 40 meq PO Q4H [facility] Stop: 03/30/18 07:31 Last Admin: 03/30/18 06:54 Dose: Not Given Potassium Chloride (Klor-Con M20) 40 meq PO ONETIME ONE Stop: 03/30/18 09:01 Last Admin: 03/30/18 09:21 Dose: 40 meq Saccharomyces Boulardii (Florastor) 250 mg PO TID [facility] Last Admin: 03/31/18 08:05 Dose: 250 mg
[2018-04-01] MEDS: metroNIDAZOLE/Normal Saline 500 MG in Premix Bag 1 BAG IV SCH (04:26)
[2018-04-01] MEDS: Sodium Chloride 0.9% 1,000 ML IV SCH (04:28)
[2018-04-01] MEDS: Levofloxacin/Dextrose 5%-Water 500 MG in Premix Bag 1 BAG IV SCH (05:29)
[2018-04-01] MEDS: Mesalamine 800 MG Tab.CR PO SCH (06:12)
[2018-04-01 09:07] VITALS: BP 131/82
[2018-04-01] MEDS: Famotidine 20 MG Tab PO SCH (09:17)
[2018-04-01] MEDS: Saccharomyces Boulardii (Probiotic) 250 MG Cap PO SCH (09:17)
[2018-04-01] MEDS: FLUTICASONE PROPIONATE INH SCH (10:18)
== END 2018-04-01 12:20 | disposition home or self-care (01) ==
LOC: JD.ED 23:06 → JD.MS 03-30 02:59
PROVIDERS: ADMIT Internal Medicine; ATTEND Internal Medicine
DX: K52.9 Noninfective gastroenteritis and colitis, unspecified (principal); E87.6 Hypokalemia; J45.909 Unspecified asthma, uncomplicated; E66.9 Obesity, unspecified; Z68.36 Body mass index [BMI] 36.0-36.9, adult; K21.9 Gastro-esophageal reflux disease without esophagitis; Z87.891 Personal history of nicotine dependence
CPT/HCPCS: 36415; 74177; 80048; 80053; 80306; 81001; 83516; 83605; 83630; 83690; 83735; 84439; 84443; 85025; 85652; 86140; 86677; 87046; 87328; 87329; 87493; 89055; 94640; 94664; 94761; 96361; 96374; 99285; A9270; C9113; J1956; J2405; J3490; J7040; Q9963; Q9967; 87427; 96365; 96366; 96367; 96375; 96376; G0378

== ENCOUNTER 2021-03-01 06:28 | Emergency (ER) | payer SELFPAY ==
[2021-03-01 07:01] VITALS: BP 178/102; PULSE 87
[2021-03-01] MEDS ORDERED: HYDROmorphone 1 MG/ML Syringe IM ONE (07:07)
[2021-03-01] MEDS ORDERED: Ketorolac 60 MG/2 ML SDV IM ONE (07:08)
--- NOTE | 2021-03-01 07:21 | EDM.PDOC ---
ED HPI GENERAL MEDICAL PROBLEM - General Chief Complaint: ENT Problem Stated Complaint: DENTAL COMPLAINT Time Seen by Provider: 03/01/21 07:01 Source of Information: Reports: Patient History Limitations: Reports: No Limitations - History of Present Illness INITIAL COMMENTS - FREE TEXT/NARRATIVE: The patient presents with right lower jaw pain. This has been going on for about 2 days. He thinks his wisdom tooth is the problem. He has no fever or chills. He has no dentist. His insurance just changed. Onset: Gradual Duration: Day(s): (2) Location: Reports: Face Quality: Reports: Sharp Severity: Severe Improves with: Reports: None Worsens with: Reports: None Associated Symptoms: Reports: No Other Symptoms Right Lower Jaw Pain Score (Numeric/FACES): 10 - Related Data Allergies Allergy/AdvReac Type Severity Reaction Status Date / Time No Known Allergies Allergy Verified 03/01/21 07:01 Home Meds: Home Meds Hydrocodone/Acetaminophen [Hydrocodone-Acetamin 5-325 mg] 1 - 2 each PO Q6H PRN #20 tablet 03/01/21 [Rx] Penicillin V Potassium 500 mg PO Q6HR #40 tab 03/01/21 [Rx] Past Medical History - Past Health History Medical/Surgical History: Denies Medical/Surgical History Respiratory History: Reports: Asthma Endocrine/Metabolic History: Reports: Obesity/BMI 30+ - Infectious Disease History Infectious Disease History: Reports: Chicken Pox - Past Surgical History Male Surgical History: Reports: Circumcision Social & Family History - Family History Family Medical History: No Pertinent Family History - Tobacco Use Tobacco Use Status *Q: Never Tobacco User - Caffeine Use Caffeine Use: Reports: None - Living Situation & Occupation Living situation: Reports: , with Spouse, with Family (2 kids) Occupation: Employed ([employer]) ED ROS ENT - Review of Systems Review Of Systems: See Below Constitutional: Reports: No Symptoms HEENT: Reports: Dental Pain Respiratory: Reports: No Symptoms Cardiovascular: Reports: No Symptoms Endocrine: Reports: No Symptoms GI/Abdominal: Reports: No Symptoms : Reports: No Symptoms ED EXAM, ENT - Physical Exam Exam: See Below Exam Limited By: No Limitations General Appearance: Alert, No Apparent Distress Ears: Normal External Exam Nose: Normal Inspection Mouth/Throat: Other (erythema and edema to the right lower jaw at the wisdom tooth area) Course - Vital Signs Last Recorded V/S: Last Vital Signs Temp 98.5 F 03/01/21 06:56 Pulse 87 03/01/21 06:56 Resp 18 03/01/21 06:56 BP 178/102 H 03/01/21 06:56 Pulse Ox 100 03/01/21 06:56 - Orders/Labs/Meds Meds: Medications Discontinued Medications Generic Name Dose Route Start Last Admin Trade Name Brittany PRN Reason Stop Dose Admin Hydromorphone HCl 1 mg 03/01/21 07:07 03/01/21 07:14 Hydromorphone 1 Mg/Ml Syringe IM 03/01/21 07:08 1 mg ONETIME ONE Administration Ketorolac Tromethamine 60 mg 03/01/21 07:08 03/01/21 07:14 Ketorolac 60 Mg/2 Ml Sdv IM 03/01/21 07:09 60 mg ONETIME ONE Administration - Re-Assessments/Exams Free Text/Narrative Re-Assessment/Exam: 03/01/21 07:17 I ordered a shot of dilaudid 1mg IM and toradol 60mg IM. I also did a dental block. I put some topical numbing medication on the right inferior alveolar nerve area. I then used 1.5ccs of bupivicaine to anaesthetize the nerve. He had moderate relief and he tolerated the procedure well. I will get him on some pen VK and hydrocodone for pain. I will have him follow up with his dentist. Departure - Departure Time of Disposition: 07:20 Disposition: Home, Self-Care 01 Condition: Good Clinical Impression: Dental abscess, Pain, dental - Discharge Information *PRESCRIPTION DRUG MONITORING PROGRAM REVIEWED*: Not Applicable *COPY OF PRESCRIPTION DRUG MONITORING REPORT IN PATIENT ELISSA: Not Applicable Prescriptions: Hydrocodone/Acetaminophen [Hydrocodone-Acetamin 5-325 mg] 1 - 2 each PO Q6H PRN #20 tablet PRN Reason: Pain Penicillin V Potassium 500 mg PO Q6HR #40 tab Referrals: Jeyson Nolen PA-C [Primary Care Provider] - Additional Instructions: Take the penicillin VK as prescribed. Take tylenol or motrin as needed for pain. If that does not help, try the hydrocodone. Follow up with a dentist in [facility]. There a multiple dentists. [facility] is an option. [facility] in [place] is also an option. Please return if you are worse. Sepsis Event Note (ED) - Evaluation Sepsis Screening Result: No Definite Risk - Focused Exam Vital Signs: Vital Signs Temp Pulse Resp BP Pulse Ox 03/01/21 06:56 98.5 F 87 18 178/102 H 100
== END 2021-03-01 07:30 | disposition home or self-care (01) ==
LOC: JD.ED 06:28
DX: K04.7 Periapical abscess without sinus (principal); J45.909 Unspecified asthma, uncomplicated; E66.9 Obesity, unspecified
CPT/HCPCS: 64400; 96372; 99283; J1170; J1885

== ENCOUNTER 2021-09-25 09:33 | Emergency (ER) | payer SELFPAY ==
[2021-09-25] MEDS ORDERED: Ondansetron 4 MG Tab.DIS PO ONE (10:45)
[2021-09-25 11:10] LABS: CORONAVIRUS COVID-19 NAA POSITIVE (NEGATIVE)
[2021-09-25 12:57] VITALS: BP 126/88; PULSE 58
== END 2021-09-25 12:06 | disposition home or self-care (01) ==
LOC: JD.ED 09:33
DX: U07.1 COVID-19 (principal); J10.1 Influenza due to other identified influenza virus with other respiratory manifestations; G43.909 Migraine, unspecified, not intractable, without status migrainosus; H81.92 Unspecified disorder of vestibular function, left ear; J45.909 Unspecified asthma, uncomplicated; E66.9 Obesity, unspecified; Z68.36 Body mass index [BMI] 36.0-36.9, adult; Z79.899 Other long term (current) drug therapy
CPT/HCPCS: 0241U; 36415; 80053; 85025; 99284; A9270

== ENCOUNTER 2021-09-28 15:42 | Emergency (ER) | payer SELFPAY ==
[2021-09-28 15:57] VITALS: BP 177/111; PULSE 75
[2021-09-28] MEDS: diphenhydrAMINE 50 MG/ML SDV IVPUSH ONE (16:42)
[2021-09-28] MEDS: Ondansetron 4 MG/2 ML SDV IVPUSH ONE (16:42)
[2021-09-28] MEDS: Sodium Chloride 0.9% 1,000 ML IV STA (16:43)
[2021-09-28] MEDS: Ketorolac 30 MG/ML SDV IVPUSH ONE (16:47)
[2021-09-28] MEDS: HYDROmorphone 0.5 MG/0.5 ML Syringe IVPUSH ONE (16:48)
== END 2021-09-28 18:34 | disposition home or self-care (01) ==
LOC: JD.ED 15:42
DX: U07.1 COVID-19 (principal); G43.909 Migraine, unspecified, not intractable, without status migrainosus; J45.909 Unspecified asthma, uncomplicated; E66.9 Obesity, unspecified; Z68.35 Body mass index [BMI] 35.0-35.9, adult; Z79.899 Other long term (current) drug therapy
CPT/HCPCS: 70450; 70450-26; 96374; 96375; 99283-25; J1170; J1200; J1885; J2405; J7030